=== PATIENT | female | born 1940 | race Caucasian/White ===

== ENCOUNTER → 2016-11-24 | Outpatient (CLI) | payer OTHER ==
[~2016-11-24] MED LIST: ACETAMINOPHEN325 M1 PO; ADULT LOW DOSE81 MG OR; ADULT LOW DOSE81 MG PO; ADVAIR HFA 1112 UNIT INH; ALPRAZOLAM; ALPRAZOLAM 0.0.25 M1 PO; AMBEREN; ASPIRIN325 PO; ATORVASTATIN CA20 MG PO; B12INJ IM; COLACE100 MG PO; COMPAZINE5 M1 PO; COMPAZINE5 MG PO; COUMADIN 2 MG TA2 M1; COUMADIN 5 MG TA5 M1 PO; COZAAR 50 MG TA50 M2 PO; DESYREL50 MG PO; FERROUS SULFAT325 M1 PO; FIBER TABS625 MG PO; FISH OIL300 MG PO; FUROSEMIDE 40 M40 M1 PO; HYDROCODONE-ACE10 ML PO; HYDROCODONE-ACE15 ML PO; HYDROCODONE-AP1 EAC6 PO; IMDUR 30 MG TAB30 M1 PO; IRON325 OR; ISOSORBIDE DINI30 MG PO; LIPITOR20 MG PO; LIPITOR40 MG OR; LIPITOR80 MG PO; LOMOTIL TABLET1 EACH; LORTAB 10 MG-3473 ML PO; LUTEIN-ZEAXANT1 EACH PO; LUTEIN20 M1 PO; MELOXICAM7.5 MG PO; METROGEL TOP; METROGEL-VAGINA70 GM VG; METRONIDAZOLE60 GM; MULTIVITAMINS PO; NEURONTIN 300M300 M2 PO; NEURONTIN100 MG PO; NEURONTIN300 MG PO; NITROGLYCERIN0.4 MG SUBLING; NITROQUICK0.4 MG SUBLING; NORCO 5-325 TA1 EACH PO; OMEGA-31000 M1 PO; OMEGA-31000 MG PO; OMEPRAZOLE20 M2; OMEPRAZOLE20 M2 OR; OMEPRAZOLE20 M2 PO; ORACEA40 MG OR; OXYCODON-ACETA1 EAC1 PO; OXYCODONE-ACET1 EACH PO; PERCOCET 5-3251 EACH PO; PHENADOZ25 MG RECTAL; PREDNISONE 10 M10 M1 PO; PREDNISONE 2.52.5 M1 PO; PREDNISONE PO; PRILOSEC20 MG PO; PROCHLORPERAZINE5 M1 PO; PULMICORT FLE180 MCG INH; Q10; ROXICODONE5 M1 PO; ROXICODONE5 MG PO; SENNA PO; SERTRALINE HCL100 MG PO; SYSTANE 0.3-0.1 EACH OP; SYSTANE 0.3-0.1 EACH OPHTHALMIC; TOPROL XL25 MG PO; TRAZODONE HCL50 MG PO; VENTOLIN HFA INH8 GM INH; VITAMIN B COMP1 EACH IM; VITAMIN D-32000 UNIT PO; VITAMIN D1000 UNI1 PO; VITAMIN D2000 UNI1 PO; VITAMIN D32000 UNI1 PO; VITAMIN D400 UNI1 PO; WELLBUTRIN SR150 MG PO; WELLBUTRIN XL150 MG PO; XANAX 0.25 MG0.25 MG PO; ZOFRAN ODT4 MG PO; ZOLOFT OR; [UNRECOGNIZED DRUG - OTHER]; [UNRECOGNIZED DRUG - OTHER] PO
== END ==
LOC: RAD 10:01
DX: J45.909 Unspecified asthma, uncomplicated (principal)

== ENCOUNTER → 2017-02-19 | Outpatient (CLI) | payer OTHER | LOC: ULTRA 13:55 | DX: N39.0 Urinary tract infection, site not specified (principal) ==

== ENCOUNTER → 2017-07-05 | Outpatient (CLI) | payer OTHER | LOC: RAD 11:57 | DX: J98.11 Atelectasis (principal); R06.00 Dyspnea, unspecified ==

== ENCOUNTER → 2017-10-11 | Outpatient (CLI) | payer OTHER | LOC: CAT 06:53 → LABMALL 06:53 | PROVIDERS: Internal Medicine Pulmonary Disease | DX: K44.9 Diaphragmatic hernia without obstruction or gangrene (principal); R06.00 Dyspnea, unspecified ==

== ENCOUNTER → 2018-04-21 | Outpatient (CLI) | payer OTHER ==
[2018-04-21 11:10] LABS: FOLIC ACID 38.2 ng/mL (8.6-58.9)
== END ==
LOC: RAD 08:53
PROVIDERS: Internal Medicine
DX: K44.9 Diaphragmatic hernia without obstruction or gangrene (principal); Z98.84 Bariatric surgery status

== ENCOUNTER → 2018-04-29 | Outpatient (CLI) | payer OTHER | LOC: MRI 06:26 | DX: R27.0 Ataxia, unspecified (principal); R41.3 Other amnesia; R32 Unspecified urinary incontinence ==

== ENCOUNTER → 2018-05-16 | Outpatient (CLI) | payer OTHER ==
[2018-05-16 09:35] LABS: CALCIUM 8.8 mg/dL (8.5-10.1); CREATININE 0.9 mg/dL (0.6-1.0); POTASSIUM 4.2 mmol/L (3.5-5.1)
== END ==
LOC: LABMALL 08:53 → CAT 14:37
PROVIDERS: Internal Medicine
DX: G45.0 Vertebro-basilar artery syndrome (principal); M47.892 Other spondylosis, cervical region; E04.1 Nontoxic single thyroid nodule

== ENCOUNTER → 2018-06-06 | Outpatient (CLI) | payer OTHER | LOC: CAT 09:24 | DX: J45.40 Moderate persistent asthma, uncomplicated (principal); J98.4 Other disorders of lung ==

== ENCOUNTER → 2018-09-13 | Outpatient (CLI) | payer OTHER | LOC: ULTRA 09-05 14:17 | DX: E04.2 Nontoxic multinodular goiter (principal); R13.10 Dysphagia, unspecified ==

== ENCOUNTER 2019-01-17 13:17 | Inpatient (IN) | payer OTHER ==
[~2019-01-17] VITALS: Ht 157.5 cm; Wt 76.4 kg
[2019-01-17] VITALS (7 sets, daily range): BP systolic 123–148; BP diastolic 43–82
[2019-01-17 14:09] LABS: ABSOLUTE NEUTROPHILS 6.2 thou/uL (1.4-8.2); BASOPHILS 0.6 % (0.0-2.0); EOSINOPHILS 0.1 % (0.0-3.0); HEMOGLOBIN 10.7 gm/dL (12.0-15.0); LYMPHOCYTES 8.9 % (24.0-44.0); MCH 30.9 pg (26.0-34.0); MCHC 33.5 g/dL (28.0-37.0); MCV 92.1 fL (80.0-100.0); MONOCYTES 3.1 % (1.0-8.0); PLATELET COUNT 120 thou/uL (150-400); POLYS 87.3 % (36.0-66.0); RBC 3.47 mil/uL (4.20-5.00); RDW 14.9 % (10.5-14.5); WBC 7.1 thou/uL (4.0-11.0)
[2019-01-17 14:23] LABS: ANION GAP 10 mmol/L (7-16); BUN 14 mg/dL (7-18); CALCIUM 8.6 mg/dL (8.5-10.1); CHLORIDE 106 mmol/L (98-107); CO2 25 mmol/L (21-32); CREATININE 1.1 mg/dL (0.6-1.0); GLUCOSE 155 mg/dL (74-106); POTASSIUM 3.5 mmol/L (3.5-5.1); SODIUM 141 mmol/L (136-145)
[2019-01-17 14:26] LABS: ALBUMIN 3.1 g/dL (3.4-5.0); LIPASE 26 U/L (73-393); MAGNESIUM 1.8 mg/dL (1.8-2.4); SGOT 22 U/L (15-37); SGPT 23 U/L (30-65); TOTAL BILIRUBIN 0.4 mg/dL (<0.1-1.0); TOTAL PROTEIN 6.3 g/dL (6.4-8.2); TROPONIN-I <0.06 ng/mL (<0.06)
[2019-01-17] MEDS ORDERED: NORVASC2.5 MG PO (15:30)
[2019-01-17] MEDS ORDERED: DYMISTA NASAL S23 GM NASAL (15:31)
[2019-01-17] MEDS ORDERED: WELLBUTRIN SR150 MG PO (15:32)
[2019-01-17] MEDS ORDERED: COLESTIPOL HCL1 G1 PO (15:33)
[2019-01-17] MEDS ORDERED: SYSTANE 0.3-0.1 EACH OPHTHALMIC (15:35)
[2019-01-17] MEDS ORDERED: CRESTOR20 MG PO (15:36)
[2019-01-17] MEDS ORDERED: CHILDREN'S ASPI81 MG PO (15:38)
[2019-01-17] MEDS ORDERED: ZOLOFT50 MG PO (15:38)
[2019-01-17] MEDS ORDERED: BREO ELLIPTA 21 EACH INH (15:41)
[2019-01-17] MEDS ORDERED: SPIRIVA INH (15:44)
--- NOTE | 2019-01-17 16:59 | EKG ---
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1940 Requested By: Cecilia Wang Order Number: [id number] MD: Renard Davila Measurements Intervals [place] Rate: 81 P: 42 [place]: 140 QRS: 33 QRSD: 102 T: 6 QT: 389 QTc: 452 Interpretive Statements Sinus rhythm Probable left atrial enlargement Compared to ECG 12/08/2014 14:02:05 No significant changes Electronically Signed On 01-17-2019 16:59:40 R D [employer] by Renard Davila [email or web address] ��������������������������������������������� <ELECTRONICALLY SIGNED> ���������������������������������������� By: Renard Davila MD ��������������������������������������������� 01/17/19 1659 1404 140 Renard Davila MD /KALEE
[2019-01-17 23:00] LABS: BE(vivo) 0.5 mmol/L (-2 to +3); HCO3 23.6 mmol/L (22.0-26.0); PCO2 32.7 mmHg (35.0-45.0); pH 7.477 (7.360-7.450); sO2 97.2 % (92.0-98.0)
[2019-01-18] VITALS: BP 123/46
--- NOTE | 2019-01-18 00:13 | NUR ---
Pt resting comfortably in bed with stable VS and no c/o pain. Report called to next RN and pt awaiting transfer to CCU.
[2019-01-18 00:47] VITALS: BP 137/54
[2019-01-18 04:55] VITALS: BP 123/57
--- NOTE | 2019-01-18 08:16 | NUR ---
PT. TRANSFER FROM ICU AROUND MIDNIGHT; AOX4; NO C/O; C-PAP ON DURING THE NIGHT; NPO THROUGH THE NIGHT; ABLE TO REST DURING THE NIGHT; ASSESSMENT CHARGED; FOLLOWING POC; PASSED ON REPORT.
--- NOTE | 2019-01-18 08:40 | EKG ---
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 : 1940 Requested By: Arnulfo Morley Order Number: [id number] MD: Renard Davila Measurements Intervals [place] Rate: 71 P: 42 MS: 150 QRS: 58 QRSD: 93 T: 25 QT: 424 QTc: 461 Interpretive Statements Sinus rhythm Compared to ECG 01/17/2019 14:04:05 No significant changes Electronically Signed On 01-18-2019 8:40:19 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
--- NOTE | 2019-01-18 09:26 | TEE ---
[facility] [place] [address] TRANSESOPHAGEAL ECHOCARDIOGRAM Name: VASILE DALE Room #: 219-P [facility] IN .R.#: [id number] ������������� Admission: 01/17/19 ������������� Attend Phys: Arnulfo Morley MD Discharge: ��� ������������� ��� Date of : 38 Date of Service: 01/18/19 0926 �� Report #: [id number] �������� ��������������������������������������������[id number] THIS REPORT FOR: //name// APPROVED REPORT Study performed: 01/18/2019 08:20:01 EXAM: Comprehensive 2D, Doppler, and color-flow Echocardiogram Patient Location: CVL Status: routine BSA: 1.79 HR: 80 bpm BP: 123/57 mmHg Rhythm: NSR Other Information Study Quality: Good Indications Mitral and aortic insufficiency. Chest pain. Echo Enhancing Agent Indication: Rule out Shunt Agent(s) / Amount(s) Used: Agitated Saline 6 cc Procedure After obtaining informed consent, patient underwent transesophageal echo in the [employer]. Type of Sedation : Conscious Sedation Sedation was achieved intravenously with: Versed (2) Fentanyl (100) Transesophageal probe was inserted and advanced into esophagus without difficulty by Brock Lemon MD. The PAT was performed without complications. Throughout the procedure, the blood pressure, pulse oximetry, cardiac rhythm, and rate were monitored. The patient tolerated the procedure without adverse effects. Recovery from conscious sedation was uneventful and vital signs were stable. Left Ventricle The left ventricle is normal size. There is normal LV segmental wall motion. There is normal left ventricular wall thickness. Left ventricular systolic function is normal. LVEF is 55-60%. [facility] [address] [place] [address] TRANSESOPHAGEAL ECHOCARDIOGRAM Name: VASILE DALE [facility] Room #: 219-P ADM IN M.R.#: [id number] ������������� Admission: 01/17/19 ������������� Attend Phys: Arnulfo Morley MD Discharge: ��� ������������� ��� Date of : 38 Date of Service: 01/18/19 0926 �� Report #: [id number] �������� ��������������������������������������������[id number] Right Ventricle The right ventricle is normal size. The right ventricular systolic function is normal. Atria Left atrium is dilated. No thrombus is visualized in the left atrium or appendage. No shunting noted by contrast bubble injection. The right atrium size is normal. Aortic Valve Aortic valve is trileaflet, mildly sclerotic Moderate to moderately severe aortic regurgitation There is no aortic valvular stenosis. Mitral Valve The mitral valve is normal in structure. Severe mitral regurgitation. Tricuspid Valve The tricuspid valve is normal in structure. Mild tricuspid regurgitation. Pulmonic Valve The pulmonary valve is normal in structure. There is no pulmonic valvular regurgitation. Great Vessels The aortic root is normal in size. IVC is normal in size and collapses >50% with inspiration. Pericardium There is no pericardial effusion. Critical Notification Critical Value: Yes Physician Notified Date: 01/18/2019 <Conclusion> Left ventricular systolic function is normal. There is normal LV segmental wall motion. LVEF is 55-60%. Left atrium is dilated. No thrombus is visualized in the left atrium or appendage. No shunting noted by contrast bubble injection. [facility] [address] [place] [address] TRANSESOPHAGEAL ECHOCARDIOGRAM Name: VASILE DALE [facility] Room #: 219-P ADM IN M.R.#: [id number] ������������� Admission: 01/17/19 ������������� Attend Phys: Arnulfo Morley MD Discharge: ��� ������������� ��� Date of : 38 Date of Service: 01/18/19925 �� Report #: [id number] �������� ��������������������������������������������[id number] Aortic valve is trileaflet, mildly sclerotic, no stenosis. Moderate to moderately severe aortic regurgitation The mitral valve is normal in structure. Severe mitral regurgitation. There is no pericardial effusion. ��������������������������������������������� <ELECTRONICALLY SIGNED> ���������������������������������������� By: Brock Lemon MD, FACC ��������������������������������������������� 01/18/19925 5 5 Brock Lemon MD, FACC /INF
[2019-01-18 11:04] VITALS: BP 123/47
--- NOTE | 2019-01-18 11:28 | NUR ---
0940-CALLED REPORT TO [facility] ON CCU,PT A/O X4 WITH NO COMPLAINTS. TRANSPORTED PT BACK TO CCU, VSS, PT BACK ON RA.
--- NOTE | 2019-01-18 11:56 | H ---
[facility] [place] [address] HISTORY AND PHYSICAL Name: VASILE FELICIANO Room #: 219-P ADM IN M.R.#: [id number] Admission: 01/17/19 ������������������ Attend Phys: Arnulfo Morley MD Discharge: ������������������ Date of : 39 Report #: [id number] THIS REPORT FOR: //name// CC: BRADLY Wilder MD DATE OF SERVICE: 01/17/2019 CHIEF COMPLAINT: Chest pain. HISTORY OF PRESENT ILLNESS: The patient is a 78-year-old female who last Wednesday was shopping at [employer] when she developed chest pain and was taken to the Emergency Room at [facility] via ambulance. She underwent an extensive cardiac workup, which was negative for coronary artery ischemia, but revealed very significant and new severe mitral valve regurgitation. The pulmonary artery pressure on their study suggested that it was elevated at 55 mmHg. The patient was managed aggressively there including some diuretic therapy, I believe and her pain resolved with nitrates. The workup was otherwise benign and the cardiology team did recommend that she see a specialist about having a MitraClip mitral valve repair as soon as possible. I saw the patient in my office today for routine followup after her hospital stay. In my waiting room or shortly prior to entering it, she developed this chest pain again and took nitroglycerin and it removed it after about 10 minutes of resting calmly. On exam, I noticed no other changes other than that she was quite pale and on exam, her cardiac exam sounded regular and strong, a systolic murmur could be heard in the left lateral chest wall, but the exam was otherwise fairly benign. She does have edema in her lower extremities. I did call and speak with her scientific research manager at [facility], Dr. Bradly Harman. After reviewing the case briefly by phone, he recommended further admission and workup of her suddenly worse mitral valve condition. The patient did provide us with extensive medical records from her stay at [facility] including a pharmacologic stress test and echocardiogram and lab tests that she had while there. The patient also reports to me that she has been noticing episodes of wheezing in her chest lately. She has chronic shortness of breath due to asthma and reactive airway problems, but otherwise, is benign. No other significant problems on extensive review today. PAST MEDICAL HISTORY: Includes Jayna fundoplication in 2008 and revision of it in 2013 as well as a gastric sleeve. There is hypertension, bilateral knee replacements, polymyalgia rheumatica and prior chronic steroid therapy, anxiety and major depression in the past, obstructive sleep apnea, right hip replacement, cataract surgeries bilaterally. [facility] [address] [place] [address] HISTORY AND PHYSICAL Name: VASILE FELICIANO Room #: 219-P [facility] IN M.R.#: [id number] Admission: 01/17/19 ������������������ Attend Phys: Arnulfo Morley MD Discharge: ������������������ Date of : 39 Report #: [id number] MEDICATION ALLERGIES: INCLUDE CODEINE, LANSOPRAZOLE, CIPRO, CALCIUM CHANNEL CEDRICK, DILTIAZEM, VALSARTAN AND PAPER TAPE AND LATEX. MEDICATIONS: Include albuterol rescue inhaler, sublingual nitroglycerin 0.4 mg with usual instructions, hydrocodone for chronic backache p.r.n., alprazolam 0.25 mg 3 times daily as needed for anxiety, amlodipine 2.5 mg by mouth daily, Dymista nasal spray 1 puff each nostril b.i.d., bupropion hydrochloride 150 mg twice daily, colestipol 1 g by mouth twice daily for choleretic diarrhea, Systane eyedrops p.r.n. dry eyes, Crestor 20 mg by mouth daily, sertraline 150 mg by mouth daily, aspirin 81 mg by mouth daily, fluticasone/vilanterol (Breo Ellipta)) 200/25 one puff by mouth daily, Spiriva 1 capsule per inhaler by mouth daily, omeprazole 20 mg by mouth twice daily, vitamin D3 at 2000 units by mouth daily, gabapentin 300 mg by mouth nightly and trazodone 50 mg by mouth nightly p.r.n. insomnia. SOCIAL HISTORY: The patient is to Yung Feliciano and has grown children and has grandchildren. She has no history of drug or alcohol abuse or any significant vices of which I am aware. She does not smoke and has never been a smoker for any length of time. FAMILY HISTORY: She has a brother with bipolar disease. Her mother in her mid 90s of myocardial infarction, her first one. REVIEW OF SYSTEMS: See history of present illness, despite an otherwise extensive review, the patient revealed no other significant new findings. PHYSICAL EXAMINATION: VITAL SIGNS: In the Emergency Room showed respiratory rate of 18 with a pulse oximetry of 95% on room air. Her pulse was 75, temperature of 37.2 degrees centigrade, and blood pressure of 137/50 and these numbers were comparable to once I obtained in the office prior to sending her to the Emergency Room. Her self-reported weight today was 173 pounds. GENERAL: The patient is an older female who is in mild distress at the time of my original exam and was out of distress by the time I visited her with second time when I saw her in the Emergency Room at [facility]. HEENT: The extraocular muscles are intact. Oropharynx is moist and pink and no lesions, no exudates. Sinuses are nontender. She has had prior nasal surgery and has somewhat narrowed nasal inlets. NECK: Supple. There is no adenopathy or thyromegaly or mass or significant JVD or bruit. LUNGS: Fairly clear bilaterally with faint crackles in the bases. CARDIAC: Reveals a regular rhythm with no gallop, but a soft left anterior chest wall. Systolic ejection murmur is heard. ABDOMEN: Soft. Bowel sounds are present throughout. No visceromegaly or masses. EXTREMITIES: There is bilateral 2+ to 3+/4 pitting edema in bilateral lower [facility] [address] [place] [address] HISTORY AND PHYSICAL Name: VASILE FELICIANO Room #: 219-P [facility] IN M.R.#: [id number] Admission: 01/17/19 ������������������ Attend Phys: Arnulfo Morley MD Discharge: ������������������ Date of : 39 Report #: [id number] extremities up to about the mid devries. No Homans signs on either side. Prior knee surgeries noted. Peripheral pulses are weak, but palpable bilaterally in the lower extremities and strong in the upper extremities. NEUROLOGIC: The mental status is completely normal. She is fully alert and oriented x 3. No hallucinations or delusions and her affect is full. No focal deficits of cranial nerves 2-12. No Babinski's sign or Romberg's sign. No focal deficits of motor function noted on gross exam. Stocking distribution, mild sensory loss chronically. EKG, normal sinus rhythm with left atrial enlargement, rate was approximately 80, no ischemic changes were noted. Chest x-ray showed no acute infiltrates. LABORATORY DATA: CMP and CBC were reviewed and found to be fairly normal. Potassium was on the low side of normal 3.5, magnesium level was on the low normal side of 1.8, glucose was elevated at 155, but nonfasting. Renal function was mildly diminished with a GFR of 48. Troponin was less than 0.06. NT-proBNP was slightly elevated at 449 with the upper limits of normal at 300. On the CBC, the hemoglobin was slightly decreased at 10.7, but consistent with her baseline and her platelet count was slightly low at 120,000 and should be repeated in the near future. ASSESSMENT AND PLAN: 1. Recurrent severe chest pain -- the patient did relate radiation to the jaw, some mild shortness of breath and sweating with this chest pain. The pain is not reproducible with exertion, however, and is not typical for coronary artery disease. Per my discussion with Dr. Harman twice earlier today, he does not feel that the chest pain is related to her mitral valve disease, which was news to him also. Nonetheless, I would like to make sure the patient is not having pulmonary emboli or any GI problems related to her prior esophageal and gastric surgeries. In the remote past, we did treat her for esophageal spasm problems with long-acting nitrates. I suspect we are headed in that direction again if her workup fails to reveal any other significant issues. I will get an upper GI series while she is here, but we will wait until after her transesophageal echocardiogram, which is tentatively scheduled for tomorrow morning. I will get serial cardiac enzymes to make sure that there was not a myocardial infarction, but her first set is normal and her EKG is normal and the likelihood of her having had a cardiac ischemic event at this time appears fairly unlikely. 2. Recently diagnosed "severe" mitral valve regurgitation with pulmonary artery hypertension -- we will defer to my cardiology colleagues and as regards the results of her transesophageal echocardiogram. Her cardiac rhythm is normal at this time and aggressive anticoagulation is not indicated. 3. Hypertension -- we will continue her home medications and treat accordingly. 4. Asthma and obstructive sleep apnea -- we will continue her home therapies and adjust as clinically indicated. [facility] [address] [place] [address] HISTORY AND PHYSICAL Name: VASILE FELICIANO Room #: 219-P [facility] IN M.R.#: [id number] Admission: 01/17/19 ������������������ Attend Phys: Arnulfo Morley MD Discharge: ������������������ Date of : 38 Report #: [id number] 5. Hyperlipidemia -- continue rosuvastatin therapy. 6. Gastroesophageal reflux disease -- continue current therapy. 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 8. History of multiple esophageal/gastric surgeries in the past -- we will obtain consultation with Dr. Brock Wilder at all regarding the possibility that her surgical revisions may be contributing to this clinical presentation of chest pain. I have ordered an upper GI series to assist in that workup. I will defer on getting a Gastroenterology consultation at this time unless my surgical colleague thinks that it would be useful in delineating upper GI issues in her current setting. ��������������������������������������������� <ELECTRONICALLY SIGNED> ���������������������������������������� By: Arnulfo Morley MD ��������������������������������������������� 01/18/19 1156 [id number] Arnulfo Morley MD /nt
[2019-01-18 15:22] VITALS: BP 133/56
[2019-01-18 19:24] VITALS: BP 131/49
--- NOTE | 2019-01-18 19:38 | NUR ---
ASSESSMENTS DOCUMENTED. PT DENIES ANY PAIN OR DISCOMFORT THROUGH OUT THE DAY. WAS NPO FOR PLANNED PAT. CALLED BY RADIOLOGY ABOUT CHANGING UPPER GI SCAN TO TOMORROW DUE TO RADIOLOGIST NOT WANTING TO COMPLETE THE SAME DAY THE PAT. PLAN FOR EGD/UPPER GI SCAN IN THE AM. PT TO BE NPO AT MIDNIGHT TONIGHT. OTHERWISE NO NEEDS OR CONCERNS AT THIS TIME.
[2019-01-19 03:48] VITALS: BP 121/55
--- NOTE | 2019-01-19 07:25 | NUR ---
ASSUME CARE 1900. PT/VITALS STABLE. DENIES ANY PAIN. UP AD CHLOE. ASSESSMENT CHARTED. PROGRESSING WELL WITH POC. PLAN IS NPO AFTER MIDNIGHT FOR AGD AND UPPER GI SERIES. WILL CONTINUE TO MONITOR AND FOLLOW WITH POC
[2019-01-19 08:00] VITALS: BP 129/52
[2019-01-19] MEDS ORDERED: IMDUR 30 MG TAB30 M1 PO (12:05)
[2019-01-19] MEDS ORDERED: COZAAR 50 MG TA50 M1 PO (12:06)
[2019-01-19] MEDS ORDERED: FLONASE 0.05%50 MCG NASAL (12:07)
[2019-01-19] MEDS ORDERED: DEMADEX 2020 MG/1 TA PO (12:07)
[2019-01-19] MEDS ORDERED: PREDNISONE 20 M20 M1 PO (12:09)
[2019-01-19 13:48] VITALS: BP 129/52
--- NOTE | 2019-01-19 13:52 | NUR ---
ASSESSMENTS DOCUMENTED. PT KEPT NPO FOR EDG AND UPPER GI SERIES. AFTER MULTIPLE PHONE CALLS, DETERMINED PT WILL NOT HAVE EGD AND TO CONTINUE TO UPPER GI SERIES ONLY. DR. HERNANDEZ AWARE AND IN PT ROOM DISCUSSING WITH PT AND SPOUSE. CALLED RESULTS OF STUDY TO DR. HRENANDEZ. TELEPHONE ORDER TO DISCHARGE PT. DR. HERNANDEZ PROVIDED SCRIPTS TO PATIENT FOR NEW MEDICATIONS. DISCHARGE INSTUCTIONS WENT OVER. DENIES ANY QUESTIONS OR CONCERNS. IV TAKEN OUT. TELEMONITOR OFF.
--- NOTE | 2019-01-20 09:31 | D ---
[facility] [place] [address] DISCHARGE SUMMARY Name: VASILE DALE Room #: 219-P [facility] IN M.R.#: [id number] Admission: 01/17/19 ������������������ Attend Phys: Arnulfo Morley MD Discharge: 01/19/19 ������������������ Date of : 39 Report #: [id number] THIS REPORT FOR: //name// CC: BRADLY Wilder MD DATE OF SERVICE: 01/19/2019 HOSPITAL COURSE: The patient is a 78-year-old female who presents with chest pain. The problem was severe at least a 10/10 on presentation and that she had another episode in the week, just prior, which landed her at [facility]. She received a complete cardiac workup there, which was negative except for the diagnosis of severe mitral valve regurgitation. Pulmonary artery pressures that time was about 50 and at the time of discharge from there, she was being referred to a subspecialist for consideration of a mitral clip for her mitral valve problem. On the day of admission here, she presented in my office having chest pain and was sent to [facility] for further evaluation and treatment. In consultation, Dr. Bradly Harman saw and guided her cardiac management. She did have a transesophageal echocardiogram while she was in the hospital. This revealed that in addition to her mitral valve regurgitation, which is significant and classified as moderately severe, she also has significant aortic valve regurgitation as well. Given that her ejection fraction is in the range of 55-60%, the main course of treatment will be afterload reduction with angiotensin receptor luis a and diuretic therapy. The patient was taken off of amlodipine during this hospital stay. We do not feel that the recurrent chest pain is due to a cardiac source. Given her prior history of at least 2 esophageal and gastric surgeries in the past, I did obtain a consult with her surgeon, Dr. Brock Wilder. At the time of this dictation, the upper GI x-ray series, which has been ordered and is pending. It is my impression that either the patient has hernia or she has a volvulus intermittently above. In any case, she is not vomiting and she is having chest soreness, but no pain at this time. Given that this problem has been noted in the past, albeit with much less severity, we feel it is likely that the patient needs to be hospitalized no further and plan to continue any necessary workup on the patient as an outpatient. In addition to the medication changes outlined above, I am also adding Imdur 30 mg by mouth daily in the morning for this patient to see if it will help maintain her with less chest pain in the future. Please note that serial EKGs and troponins as well as 2 recent coronary artery disease workups were negative for any evidence of coronary ischemic disease. If the upper GI series is otherwise benign and ____ discharge the patient to home this afternoon and [address] [address] DISCHARGE SUMMARY Name: VASILE DALE JET Room #: 219-P [facility] IN M.R.#: [id number] Admission: 01/17/19 ������������������ Attend Phys: Arnulfo Morley MD Discharge: 01/19/19 ������������������ Date of : 39 Report #: [id number] continue the workup as an outpatient as needed. If a significant volvulus problem is found, this may require further surgical intervention and could be significant danger to her health if not treated on immediately. DISCHARGE DIAGNOSES: 1. Noncardiac chest pain, recurrent. 2. Multiple esophageal surgeries in the past. 3. Moderately severe mitral valve regurgitation. 4. Moderately severe aortic valve regurgitation. 5. Mild coronary artery disease without evidence of inducible ischemia. 6. Gastroesophageal reflux disease. 7. Hyperlipidemia. 8. Hypothyroidism. 9. History of depression. 10. Leg edema. 11. Osteoporosis. 12. Anxiety. 13. Polymyalgia rheumatica. 14. Seasonal allergic rhinitis. DISCHARGE MEDICATIONS: As follows: 1. Ventolin inhaler q.6 hours p.r.n. shortness of breath or wheezing. 2. Sublingual nitroglycerin 0.4 mg p.r.n. chest pain up to 3 times per episode. 3. Hydrocodone/acetaminophen 5/325 one by mouth every 6 hours as needed for moderate pain. 4. Xanax 0.25 mg by mouth 3 times daily p.r.n. anxiety. 5. Omeprazole 20 mg by mouth twice daily. 6. Vitamin D3 2000 units by mouth daily. 7. Gabapentin 300 mg by mouth and just make sure gabapentin 300 mg by mouth at bedtime. 8. Trazodone 50 mg by mouth at bedtime. 9. Dymista nasal spray 23 grams spray pump 1 puff each nostril twice daily/ 10. Bupropion hydrochloride 150 mg sustained release formulation by mouth twice daily. 11. Colestipol 1 gram tablets one tablet by mouth twice daily. 12. Systane eye drops 1 drop each eye daily as needed for dry eyes. 13. Crestor 20 mg by mouth daily at bedtime for cholesterol. 14. Sertraline 100 mg by mouth daily in the morning. 15. Aspirin 81 mg by mouth daily in the morning. 16. Breo Ellipta 200/25 one puff daily. 17. Tiotropium bromide 1 capsule per HandiHaler daily. 18. Imdur 30 mg by mouth every morning. 19. Losartan 50 mg by mouth every morning. 20. Torsemide 20 mg by mouth every morning. 21. Fluticasone nasal spray is canceled as she will be using the Dymista. [facility] [address] [place] [address] DISCHARGE SUMMARY Name: VASILE DALE Room #: 219-P [facility] IN M.R.#: [id number] Admission: 01/17/19 ������������������ Attend Phys: Arnulfo Morley MD Discharge: 01/19/19 ������������������ Date of : 39 Report #: [id number] 22. Prednisone and that actually should read 18 mg by mouth every morning for treatment of polymyalgia rheumatica. ��������������������������������������������� <ELECTRONICALLY SIGNED> ���������������������������������������� By: Arnuflo Morley MD ��������������������������������������������� 01/20/19 0931 1225 [id number] Arnulfo Morley MD /nt
--- NOTE | 2019-01-25 09:01 | HC ---
[facility] [place] [address] CONSULTATION Name: VASILE DALE Room #: 219-P [facility] IN M.R.#: [id number] Admission: 01/17/19 ������������������ Attend Phys: Arnulfo Morley MD Discharge: 01/19/19 ������������������ Date of : 39 Report #: [id number] THIS REPORT FOR: //name// CC: Arnulfo Morley DATE OF SERVICE: 01/17/2019 HISTORY OF PRESENT ILLNESS: The patient is a 78-year-old female who is known to myself. Followed by Dr. Arnulfo Morley. There had been a history of some chest pain with some typical and atypical features. She has a history of coronary artery disease. Last catheterization was 2010 with a 40% LAD. She has had a stress echo or nuclear test in my office in August of last year and then just had a nuclear pharmacologic test done at [place] [facility] that they mention in the discharge summary as being normal. They also talk about some moderately severe mitral regurgitation with some mitral annular calcification. She had mild mitral regurgitation, mild tricuspid regurgitation on a stress echo in 08/2017 in my office. She has some recurrent chest pain, which had been episodic on and off anywhere from 10 to 20 minutes, over the last few months. She has a very complex GI history with at least a partial gastrectomy and surgery for reflux. So, this is not necessarily a new finding. Troponins were negative at [place] [facility] and are negative here today. Instructed to come to the ER by Dr. Morley. She is pain free currently and the EKG is unremarkable. Her enzymes are negative. I do not perceive this to be epicardial coronary disease. She does not appear to be in heart failure. She had some question of slurred speech and was seen by Neurology and CT of the head that was unremarkable at [facility]. This admission had just occurred in the last few days and that apparently has resolved and she is denying any current complaints tonight. She is on Proventil inhaler, Wellbutrin, amlodipine 2.5, Colestid, gabapentin, omeprazole, metronidazole gel p.r.n., eyedrops, Crestor 20, trazodone 50 at bedtime, Zoloft 100 and cholecalciferol. PAST MEDICAL HISTORY: Positive for the coronary artery disease which was mild; hypertension; hypercholesterolemia; PMR; positive MADINA; long history of reflux with partial gastrectomy and reflux operation per Dr. Wilder. A total hip revision. I believe that stomach surgery in the past had been a Jayna fundoplication. FAMILY HISTORY: Strongly positive for premature coronary artery disease, mother and father and a cousin. SOCIAL HISTORY: She is accompanied by her daughter. She is a nonsmoker, minimal alcohol use. She is retired. One glass of wine. Does do green tea on a daily basis. She does walk some in a pool in the past. LABORATORY DATA: Potassium 3.5, sodium 141, creatinine 1.1, glucose 150. Normal liver function test. Troponin negative. H and H are 10.7 and 32, white [facility] [address] [place] [address] CONSULTATION Name: VASILE DALE Room #: 219-P [facility] IN M.R.#: [id number] Admission: 01/17/19 ������������������ Attend Phys: Arnulfo Morley MD Discharge: 01/19/19 ������������������ Date of : 39 Report #: [id number] count 7.1, platelets 120. Lipids last summer in my office were favorable with an HDL of 80 and LDL 63, total cholesterol 163, triglycerides 101. PHYSICAL EXAMINATION: GENERAL: She is no distress currently. She is eating dinner. She is in an ICU overflow bed. VITAL SIGNS: Blood pressure is 130/60, pulse is 80. HEENT: Eyes reveal xanthelasmas. Pharynx is clear. NECK: Shows preserved upstrokes without JVD or bruits. LUNGS: Clear. CARDIOVASCULAR: Regular rate and rhythm, S1, S2. There is a faint holosystolic murmur at the apex. ABDOMEN: Soft. There is some mild diffuse tenderness in the midepigastric area. Bowel sounds are noted. EXTREMITIES: Reveal trace of edema. Distal pulses diminished, but intact. NEUROLOGIC: Nonfocal. SKIN: Warm and dry without xanthoma or ulcer. MUSCULOSKELETAL: Generalized arthritic changes. ASSESSMENT: 1. Chest pain, I suspect GI etiology with long history of fundoplication and recurrent gastric esophageal surgery. 2. Coronary artery disease. It has been mild in the past. No evidence with negative nuclear stress test in August and then recently this week, negative for ischemia. 3. Hypertension. 4. Hypercholesterolemia. 5. Degenerative joint disease. 6. Mitral insufficiency of some unclear degree. RECOMMENDATIONS AND PLAN: She does not appear to be in any overt heart failure. We will proceed with PAT for better visualization of this valve, I certainly have some conflicting reports. I was able to review the stress echo from 08/2017. There was some mild thickening of the mitral valve and mitral annular calcification, but mild MR best at that setting. There was moderate aortic insufficiency at that setting that was also reported. LV function was preserved. I believe Dr. Morley is also having surgery and GI evaluate for this with this complex GI history. We will follow along with you. Thank you for allowing us to assist in the care of this patient. ��������������������������������������������� <ELECTRONICALLY SIGNED> ���������������������������������������� By: Bradly Harman MD, [facility] ��������������������������������������������� 01/25/19 0901 [id number] Bradly Harman MD, FACC /nt
== END 2019-01-19 14:34 | disposition home or self-care (01) | DRG 392 ==
LOC: ER 13:17 → EROBS 15:19 → 2N 15:19 → ICU 18:24 → 2N 01-18 00:46 → ENTRNSPT 01-19 14:15 → EDTRNSPTSTS 01-19 14:27 → 2N 01-19 14:34
PROVIDERS: Nurse Practitioner Family; ADMIT Internal Medicine
PROC: B24BZZ4 Ultrasonography of Heart with Aorta, Transesophageal (ICD-10-PCS; principal; 2019-01-18)
DX: K22.4 Dyskinesia of esophagus (principal); K21.9 Gastro-esophageal reflux disease without esophagitis; Z96.653 Presence of artificial knee joint, bilateral; F32.9 Major depressive disorder, single episode, unspecified; F41.9 Anxiety disorder, unspecified; Z96.641 Presence of right artificial hip joint; J45.909 Unspecified asthma, uncomplicated; I10 Essential (primary) hypertension; E78.00 Pure hypercholesterolemia, unspecified; I25.10 Atherosclerotic heart disease of native coronary artery without angina pectoris; I34.0 Nonrheumatic mitral (valve) insufficiency; E03.9 Hypothyroidism, unspecified; M81.0 Age-related osteoporosis without current pathological fracture; M35.3 Polymyalgia rheumatica; G47.33 Obstructive sleep apnea (adult) (pediatric); M19.90 Unspecified osteoarthritis, unspecified site; E78.5 Hyperlipidemia, unspecified; I35.1 Nonrheumatic aortic (valve) insufficiency; I27.20 Pulmonary hypertension, unspecified; D64.9 Anemia, unspecified; Z98.42 Cataract extraction status, left eye; Z98.41 Cataract extraction status, right eye; Z98.84 Bariatric surgery status; Z88.8 Allergy status to other drugs, medicaments and biological substances; Z88.6 Allergy status to analgesic agent; Z88.1 Allergy status to other antibiotic agents; Z91.040 Latex allergy status; Z82.49 Family history of ischemic heart disease and other diseases of the circulatory system; Z81.8 Family history of other mental and behavioral disorders; Z79.82 Long term (current) use of aspirin; Z79.899 Other long term (current) drug therapy
CPT/HCPCS: 10081; 10203

== ENCOUNTER → 2019-06-30 | Outpatient (CLI) | payer OTHER ==
[~2019-06-30] MED LIST changes: +BREO ELLIPTA 21 EACH INH; +CHILDREN'S ASPI81 MG PO; +COLESTIPOL HCL1 G1 PO; +COZAAR 50 MG TA50 M1 PO; +CRESTOR20 MG PO; +DEMADEX 2020 MG/1 TA PO; +DYMISTA NASAL S23 GM NASAL; +FLONASE 0.05%50 MCG NASAL; +NORVASC2.5 MG PO; +PREDNISONE 20 M20 M1 PO; +SPIRIVA INH; +ZOLOFT50 MG PO
[2019-06-30 11:05] VITALS: BP 124/62
[2019-06-30 12:03] VITALS: BP 130/64
--- NOTE | 2019-06-30 13:12 | NUR ---
IN FOR 2ND AND LAST VENOFER INFUSION. PATIENT STATED SHE FEELS A LITTLE STRONGER THIS WEEK, AND NOTICED NO SIDE EFFECTS FROM 1ST DOSE LAST WEEK. IV STARTED AND INFUSED VENOFER OVER 30 MINUTES AND TOLERATED WELL. POST VITAL SIGNS GOOD. OBSERVED FOR 15 MINUTES AND THEN DISMISSED IN STABLE CONDITION.
== END ==
LOC: OPONC 01:45
DX: D50.9 Iron deficiency anemia, unspecified (principal)
CPT/HCPCS: 95000

== ENCOUNTER → 2019-09-01 | Outpatient (CLI) | payer OTHER | LOC: MRI 10:00 | DX: M85.89 Other specified disorders of bone density and structure, multiple sites (principal); M54.9 Dorsalgia, unspecified; Z78.0 Asymptomatic menopausal state ==

== ENCOUNTER → 2019-10-25 | Outpatient (CLI) | payer OTHER | LOC: RAD 09:42 | DX: R91.8 Other nonspecific abnormal finding of lung field (principal); J98.11 Atelectasis ==

== ENCOUNTER 2019-11-30 12:50 | Inpatient (IN) | payer OTHER ==
[~2019-11-30] VITALS: Ht 154.9 cm; Wt 81.2 kg
--- NOTE | ~2019-11-30 | D ---
[facility] [place] [address] DISCHARGE SUMMARY Name: VASILE DALE Room #: 434-P [facility] IN M.R.#: [id number] Admission: 11/30/19 Attend Phys: Arnulfo Morley MD Discharge: 12/02/19 Date of : 39 Report #: [id number] THIS REPORT FOR: //name// CC: Arnulfo Morley DATE OF SERVICE: 12/02/2019 HOSPITAL COURSE: The patient was admitted directly after visiting my office and having symptomatic hypoxia with persistent cough and a fever of 101.4 degrees in the middle of flu season. Flu swab was done at the hospital and was negative. The patient was dehydrated and quite wheezy, so she was treated aggressively with aggressive nebulizer treatments and pulmonary toilet as well as steroids, oral antibiotics and Tamiflu and intravenous fluids for the dehydration. She responded to all the treatments rather quickly. After 48 hours, she had not had any further episodes of fever and coupled with the negative flu swabs I felt unlikely that she would have influenza. At time of discharge, I am discontinuing the Tamiflu and will continue her other home medications as before and add following to her short-term regimen. First, we will put her on minocycline 100 mg twice a day for an additional 7 days to treat antibacterial respiratory infection apparently. The patient had several liters of intravenous fluids, tolerated this well and actually felt much better afterwards. She did some occupational physical therapy while she was here and began to feel more stable in her feet, although it is recommended during this discharge for the first time the patient continue using a roller walker after she goes home. The patient prefers a rollator and I have given her an order for that while she was in the hospital. Other discharge diagnoses after atypical pneumonia include asthma, hyperlipidemia, hypertension, mitral valve regurgitation, chronic recurrent depression, anxiety, gastroesophageal reflux disease and the rest is as noted in her chart. She is to see me in followup 1 week after discharge. She will call the office for an appointment on Wednesday. Her home medications will continue as before with the addition of the minocycline and after she finishes that, she will go on a 2-week course of Nystatin swish and swallow to take care of apparent rash that she is developing from the antibiotics and steroids that she is on. She will go back to her baseline dose of prednisone, which she was taking at home prior to admission this time. She was at 40 mg twice a day while hospitalized. [address] [address] DISCHARGE SUMMARY Name: VASILE DALE Room #: 434-P [facility] IN M.R.#: [id number] Admission: 11/30/19 Attend Phys: Arnulfo Morley MD Discharge: 12/02/19 Date of : 39 Report #: [id number] Thank you very much. By: [id number] Arnulfo Molrey MD /nt
[2019-11-30 13:39] LABS: BE(vivo) 1.2 mmol/L (-2 to +3); HCO3 25.3 mmol/L (22.0-26.0); PCO2 38.1 mmHg (35.0-45.0); PO2 61.5 mmHg (80.0-100.0); sO2 92.5 % (92.0-98.0)
[2019-11-30 14:33] LABS: ABSOLUTE NEUTROPHILS 5.6 thou/uL (1.4-8.2); BASOPHILS 0.5 % (0.0-2.0); EOSINOPHILS 0.3 % (0.0-3.0); HEMATOCRIT 33.3 % (37.0-47.0); HEMOGLOBIN 10.7 gm/dL (12.0-15.0); LYMPHOCYTES 4.9 % (24.0-44.0); MCH 28.8 pg (26.0-34.0); MCV 90.1 fL (80.0-100.0); MONOCYTES 9.1 % (1.0-8.0); PLATELET COUNT 133 thou/uL (150-400); POLYS 85.2 % (36.0-66.0); RDW 15.9 % (10.5-14.5); WBC 6.5 thou/uL (4.0-11.0)
[2019-11-30 14:47] LABS: CALCIUM 8.4 mg/dL (8.5-10.1); CREATININE 1.4 mg/dL (0.6-1.0); POTASSIUM 3.7 mmol/L (3.5-5.1)
[2019-11-30 14:53] LABS: ALBUMIN 3.2 g/dL (3.4-5.0); DIRECT BILIRUBIN 0.1 mg/dL (<0.1-0.2); TOTAL BILIRUBIN 0.4 mg/dL (<0.1-1.0); TOTAL PROTEIN 6.6 g/dL (6.4-8.2)
[2019-11-30 17:21] VITALS: BP 116/40
[2019-11-30 19:25] VITALS: BP 115/41
--- NOTE | 2019-11-30 19:34 | NUR ---
Pt direct admission from Dr. Morley office. States she has a headahe and feels like she has the flu. Flu swab and MRSA swab sent to lab. New orders acknowledged. New IV started. IVF infusing. Labs and chest X-ray faced per 's order. Med rec completed. Admission completed. Report given to noc RN.
[2019-11-30 22:45] LABS: URINE BILIRUBIN NEGATIVE (Negative); URINE BLOOD NEGATIVE (Negative); URINE CLARITY CLEAR; URINE COLOR YELLOW; URINE GLUCOSE-RANDOM* NEGATIVE (Negative); URINE KETONES NEGATIVE (Negative); URINE LEUKOCYTES-REFLEX NEGATIVE (Negative); URINE NITRITE-REFLEX NEGATIVE (Negative); URINE PROTEIN (DIPSTICK) NEGATIVE (Negative); URINE UROBILINOGEN 0.2 E.U./dl (0.2-1.0)
--- NOTE | 2019-12-01 00:34 | NUR ---
ASSUMED CARE OF PT @1900 PT ASSESSED AT START OF SHIFT A&OX4 IV INTACT AND FLUIDS INFUSING. SCHEDULED TYLENOL GIVEN FOR GENERALIZIED PAIN. PT GETS BX AND WEARS CPAP. ISOLATION MAINTAINED AND UA SAMPLE SENT TO LAB. FALL PREC IN PLACE AND WILL CONT WITH POC TILL EOS
[2019-12-01] MEDS ORDERED: OMEPRAZOLE40 MG PO (03:14)
[2019-12-01 03:30] VITALS: BP 118/71
[2019-12-01 08:57] VITALS: BP 113/89
--- NOTE | 2019-12-01 10:34 | NUR ---
INITIAL ASSESSMENT: Pt evaluated for d/c planning needs. Reviewed chart and spoke with nurse and pt. Pt is alert and oriented. Pt lives in house with spouse and was independent with ADL's prior to admission to the hospital. Pt has cane at home. Pt had home health after knee and hip surgeries, but does not have walker. Pt plans on returning home on d/c from hospital. WIll remain available to assist as needed.
--- NOTE | 2019-12-01 16:29 | NUR ---
Assumed care of pt at 0700. Pt a&ox4. Cardiology consulted to clear pt for sx. Surgeon visited with pt and family and explained options. Platelets infused. 2 units of blood to be infused as well. SBA with walker and gait belt. Fall precautions in place.
[2019-12-01 18:00] VITALS: BP 114/68
[2019-12-01 19:10] VITALS: BP 143/56
--- NOTE | 2019-12-01 19:42 | NUR ---
Assumed care of pt at 0700. Pt a&ox4. Flu swab and MRSA swab negative. IVF completed. Denies pain. Pt ambulates with steady gait. Call light within reach. Report given to michi PARKS.
--- NOTE | 2019-12-02 03:26 | NUR ---
ASSESSED AT START OF SHIFT C/O ON INGESTION CALLED DR HERNANDEZ AND ORDERED RECEIVED FOR JUAN DANIEL. PT FEELING MUCH BETTER AFTWARDS. EVENING MEDS GIVING. CALL LIGHT IN REACH WILL CONT TO MONITOR TILL EOS
[2019-12-02 04:50] VITALS: BP 139/61
[2019-12-02 07:15] VITALS: BP 129/62
--- NOTE | 2019-12-02 12:57 | H ---
[facility] [place] [address] HISTORY AND PHYSICAL Name: VASILE DALE Room #: 434-P ADM IN M.R.#: [id number] Admission: 11/30/19 Attend Phys: Arnulfo Morley MD Discharge: Date of : 38 Report #: [id number] THIS REPORT FOR: //name// CC: Bradly Morley DATE OF SERVICE: 11/30/2019 CHIEF COMPLAINT: Cough and shortness of breath. HISTORY OF PRESENT ILLNESS: The patient is an 79-year-old white female who presented at my office with 24 hours of increasing shortness of breath and coughing and chest congestion. Her appetite was off as well. She did not sleep well the night before seeing me. Her cough is productive of brown milky phlegm. During exam at my office, she was noted to have an oxygen saturation on room air of 90% with a temperature of 101.4 degrees Fahrenheit. Her pulse was in the 80s and her blood pressure was 138/60, her respiratory rate was 22 per minute. I sent her to [facility] to be directly admitted for further evaluation and treatment. She has a working diagnosis of dementia, possibly influenza. PAST MEDICAL HISTORY: Very extensive and includes hypertension, type 2 diabetes, polymyalgia rheumatica, chronic steroid therapy, obstructive sleep apnea, right hip replacement, bilateral knee replacements, history of recurrent major depression. She has had cataract surgeries bilaterally. She has had a Jayna fundoplication and a subsequent revision as well as a gastric sleeve because of obesity. She has asthmatic COPD, mild peripheral neuropathy, hyperlipidemia, dry eyes. MEDICATION ALLERGIES: Include CODEINE, LANSOPRAZOLE, CIPRO, CALCIUM-CHANNEL CEDRICK, DILTIAZEM and VALSARTAN and PAPER TAPE and LATEX. MEDICATIONS: On admission include amlodipine, ProAir HFA metered dose inhaler, DuoNeb per nebulizer, Crestor 20 mg by mouth daily, sertraline 150 mg by mouth daily, bupropion 150 mg by mouth twice daily, gabapentin 300 mg by mouth nightly, omeprazole 20 mg by mouth b.i.d., vitamin D3 2000 units by mouth daily, Spiriva 1 capsule per inhaler daily, Tylenol No. 3 was tried for back pain and she did not have an allergic reaction to the CODEINE in it, but the pain relief was suboptimal. She has sublingual nitroglycerin for her recurrent chest pain issues, but these problems are not due to coronary artery disease. SOCIAL HISTORY: She is to [place] and has grown children and grandchildren. She has no history of alcohol or drug abuse or any significant vices. She is retired. FAMILY HISTORY: She has a brother who is a physician and he has bipolar [address] [address] HISTORY AND PHYSICAL Name: VASILE DALE Room #: 434-P [facility] IN M.R.#: [id number] Admission: 11/30/19 Attend Phys: Arnulfo Morley MD Discharge: Date of : 39 Report #: [id number] disorder. Her mother of myocardial infarction in her 90s, that was her first myocardial infarction. She also had some mild Alzheimer's dementia, fairly late onset. REVIEW OF SYSTEMS: The patient reports in the last 24 hours she has developed headache and dizziness, dry mouth. She denies any loss of hearing or change in her vision. Her neck is without pain. The patient denies any increase in chest pain lately. No abdominal pain. Her bowel and bladder function seems to be fairly normal and at baseline. She denies any problems, otherwise as regards to her lower extremities and her back. PHYSICAL EXAMINATION: VITAL SIGNS: In my office she had a temperature of 101.4 with respirations of 22 per minute, pulse and blood pressure listed above and weight was not obtained. GENERAL: The patient is a pleasant older white female who is downcast at the present time and appears slightly dyspneic. HEENT: Extraocular muscles are intact. Oropharynx is dry and pink without lesions or exudates. Sinuses, periorbital and suborbital are negative. Hearing is grossly normal bilaterally. NECK: Without adenopathy or thyromegaly or tenderness. There is slight tenting noted. LUNGS: Coarse with wheezing bilaterally and dullness in both bases. CARDIOVASCULAR: Reveals irregular rhythm without significant new murmur, gallop or rub. ABDOMEN: Soft. Bowel sounds are present, no visceromegaly or masses. EXTREMITIES: Without cyanosis or clubbing. She has trace peripheral edema in bilateral lower extremities, consistent with her baseline. Peripheral pulses easily palpated in all 4 distal extremities. MENTAL STATUS: The patient is alert. She is fully oriented, no hallucinations or delusions. Her affect is clearly downcast. Her short and long-term memory appears to be fairly normal at baseline. NEUROLOGIC: Fairly normal otherwise and this is baseline for her. She has some mild sensory deficits at the both feet in a stocking distribution. Objective lab and x-ray section shows the following results from the time of admission. She has an arterial blood gas with a pH of 7.440, pCO2 of 38.1 and a pO2 of 61.5 on room air. Lactic acid level was measured at 2.13 on the arterial blood gas, which is elevated. No other significant abnormalities on blood gas, CBC with differential shows a white count of 3.7 with a differential of 85.2, segmented neutrophils, 4.9 lymphs, 9.1 monos, 0.3 eosinophils, 0.5% basophils and the absolute neutrophil count was 5600, hemoglobin 10.7. Normal red cell indices with a slightly elevated RDW of 15.9 and the platelet count was 133,000. Basic metabolic panel showed sodium 141, potassium 3.7, chloride 103, bicarbonate of 32, BUN 11, creatinine 1.4, the anion gap is 6 and low. The BUN is 11, creatinine 1.4 with a GFR of 36, glucose 117, AST 15, total bilirubin 0.[address] [address] HISTORY AND PHYSICAL Name: VASILE DALE [facility] Room #: 434-P [facility] IN M.R.#: [id number] Admission: 11/30/19 Attend Phys: Arnulfo Morley MD Discharge: Date of : 39 Report #: [id number] and direct bilirubin is 0.1. The calcium is 8.4, alkaline phosphatase is 55, ALT is 17, AST is 15, total protein 6.6, albumin 3.2. The sedimentation rate was 28 and normal. Procalcitonin was less than 0.05 and normal. Blood cultures were obtained. Urinalysis was normal. Chest x-ray was performed. There were no acute infiltrates ____ atelectasis was otherwise seen bilaterally. Atherosclerotic changes in the aorta were noted. The patient had an influenza swab of her nares. This was negative for influenza A and B. Formal ____ studies including the nasal swab for respiratory viruses plus Streptococcal and legionella ____ studies are also pending at time of this dictation. ASSESSMENT AND PLAN: 1. Sepsis due to pneumonia versus influenza (hypoxemia, elevated lactic acid, mildly abnormal chest x-ray or evidence of such). I have started aggressive intravenous rehydration of the patient and started her on Tamiflu and IV antibiotics while awaiting further developments. She will continue aggressive pulmonary toilet as per home regimen. We will consider Pulmonary consult if her case becomes any more difficult to manage. 2. Dehydration as above. 3. Asthmatic chronic obstructive pulmonary disease. Nebulizer treatments ordered. I am considering the addition of further steroids. 4. Hypertension. We will monitor and treat with a goal of systolic blood pressure less than 140. 5. Gastroesophageal reflux disease with history of Jayna fundoplication, gastric sleeve. 6. Recurrent major depression. 7. Hyperlipidemia. 8. History of polymyalgia rheumatica, on chronic steroids. 9. Osteoarthritis with a history of bilateral total knee arthroplasty and total hip arthroplasty on the right. 10. Obstructive sleep apnea. Continue using CPAP. 11. Bilateral cataract surgeries. 12. Overweight. 13. Mitral valve regurgitation. 14. Choleretic diarrhea after a cholecystectomy. 15. Noncardiac chest pain with chronic anxiety. <ELECTRONICALLY SIGNED> By: Arnulfo Morley MD 12/02/19 1257 1150 1326 Arnulfo Morley MD /nt
--- NOTE | 2019-12-02 13:53 | NUR ---
PT CARE ASSUMED AT 0700. A&Ox4. PT UP AT [facility]. PT WOULD LIKE TO DISCHARGE TODAY. IV HAS BEEN REMOVED AND ORDERS ARE IN PLACE TO DISCHARGE. SCRIPTS SENT HOME WITH PATIENT.
[2019-12-02] MEDS ORDERED: SERTRALINE HCL50 MG PO (13:54)
[2019-12-02] MEDS ORDERED: BENZONATATE100 MG PO (13:54)
[2019-12-02] MEDS ORDERED: MUCINEX DM ER1 EAC1 PO (13:54)
[2019-12-02] MEDS ORDERED: TYLENOL EXTRA500 MG PO (13:54)
[2019-12-02] MEDS ORDERED: NEURONTIN 300300 M1 PO (13:54)
[2019-12-02] MEDS ORDERED: TRAZODONE HCL50 MG PO (13:54)
[2019-12-02] MEDS ORDERED: ASPIR 8181 MG PO (13:54)
[2019-12-02] MEDS ORDERED: WELLBUTRIN 100100 MG PO (13:54)
[2019-12-02] MEDS ORDERED: NORVASC5 MG PO (13:54)
[2019-12-02] MEDS ORDERED: IPRAT-ALBUT 0.5-3 ML INH (14:14)
[2019-12-02] MEDS ORDERED: ATORVASTATIN CA80 MG PO (14:14)
[2019-12-02] MEDS ORDERED: PULMICORT0.5 MG/21 INH (14:16)
[2019-12-02] MEDS ORDERED: ARTIFICIAL TEA1 EACH OPHTHALMIC (14:16)
[2019-12-02 14:17] VITALS: BP 129/62
[2019-12-02] MEDS ORDERED: PROTONIX 20 MG20 M1 PO (14:17)
[2019-12-03 22:06] LABS: ADENOVIRUS Negative (Negative); INFLUENZA A Negative (Negative); INFLUENZA B Negative (Negative); METAPNEUMOVIRUS Negative (Negative); PARAINFLUENZA 1 Negative (Negative); PARAINFLUENZA 2 Negative (Negative); PARAINFLUENZA 3 Negative (Negative); RHINOVIRUS Negative (Negative); RSV A Positive (Negative); RSV B Negative (Negative)
== END 2019-12-02 14:57 | disposition home or self-care (01) | DRG 871 ==
LOC: 4S 12:50
PROVIDERS: ADMIT Internal Medicine
DX: A41.9 Sepsis, unspecified organism (principal); J18.9 Pneumonia, unspecified organism; J11.00 Influenza due to unidentified influenza virus with unspecified type of pneumonia; J44.0 Chronic obstructive pulmonary disease with (acute) lower respiratory infection; I10 Essential (primary) hypertension; E11.9 Type 2 diabetes mellitus without complications; G47.33 Obstructive sleep apnea (adult) (pediatric); Z96.641 Presence of right artificial hip joint; Z96.653 Presence of artificial knee joint, bilateral; F32.9 Major depressive disorder, single episode, unspecified; G62.9 Polyneuropathy, unspecified; E78.5 Hyperlipidemia, unspecified; E86.0 Dehydration; M19.90 Unspecified osteoarthritis, unspecified site; K21.9 Gastro-esophageal reflux disease without esophagitis; I34.0 Nonrheumatic mitral (valve) insufficiency; E66.3 Overweight; Z68.33 Body mass index [BMI] 33.0-33.9, adult; Z98.42 Cataract extraction status, left eye; Z98.41 Cataract extraction status, right eye; Z79.899 Other long term (current) drug therapy
CPT/HCPCS: 10102

== ENCOUNTER → 2019-12-20 | Outpatient (CLI) | payer OTHER ==
[~2019-12-20] MED LIST changes: +ARTIFICIAL TEA1 EACH OPHTHALMIC; +ASPIR 8181 MG PO; +ATORVASTATIN CA80 MG PO; +BENZONATATE100 MG PO; +DESYREL150 MG PO; +IPRAT-ALBUT 0.5-3 ML INH; +KLOR-CON M2020 MEQ PO; +MUCINEX DM ER1 EAC1 PO; +NEURONTIN 300300 M1 PO; +NITROSTAT0.4 M1 SUBLING; +NORVASC5 MG PO; +OMEPRAZOLE40 MG PO; +PREDNISONE 5 MG5 M1 PO; +PROTONIX 20 MG20 M1 PO; +PULMICORT0.5 MG/21 INH; +SERTRALINE HCL50 MG PO; +TORSEMIDE20 MG PO; +TYLENOL EXTRA500 MG PO; +WELLBUTRIN 100100 MG PO; +XANAX 0.5 MG0.5 M1 PO
== END ==
LOC: SJCVC 12:58
DX: I21.19 ST elevation (STEMI) myocardial infarction involving other coronary artery of inferior wall (principal); R94.31 Abnormal electrocardiogram [ECG] [EKG]; I25.10 Atherosclerotic heart disease of native coronary artery without angina pectoris; E78.00 Pure hypercholesterolemia, unspecified; I10 Essential (primary) hypertension; K22.4 Dyskinesia of esophagus; R53.83 Other fatigue; R68.89 Other general symptoms and signs; I08.0 Rheumatic disorders of both mitral and aortic valves; J45.909 Unspecified asthma, uncomplicated; E78.5 Hyperlipidemia, unspecified; K21.9 Gastro-esophageal reflux disease without esophagitis; M81.0 Age-related osteoporosis without current pathological fracture; Z79.82 Long term (current) use of aspirin; Z79.899 Other long term (current) drug therapy

== ENCOUNTER 2020-01-04 06:50 | Inpatient (IN) | payer OTHER ==
[~2020-01-04] VITALS: Ht 154.9 cm; Wt 83.0 kg
[~2020-01-04 06:50] MED LIST changes: -DESYREL150 MG PO; -KLOR-CON M2020 MEQ PO; -NITROSTAT0.4 M1 SUBLING; -PREDNISONE 5 MG5 M1 PO; -TORSEMIDE20 MG PO; -XANAX 0.5 MG0.5 M1 PO
[2020-01-04] MEDS ORDERED: PREDNISONE 5 MG5 M1 PO (07:07)
[2020-01-04] MEDS ORDERED: TORSEMIDE20 MG PO (07:07)
[2020-01-04] MEDS ORDERED: DESYREL150 MG PO (07:11)
[2020-01-04] MEDS ORDERED: XANAX 0.5 MG0.5 M1 PO (07:13)
[2020-01-04 07:19] VITALS: BP 151/60
[2020-01-04] MEDS ORDERED: B12INJ IM (07:22)
[2020-01-04] MEDS ORDERED: NITROSTAT0.4 M1 SUBLING (07:25)
[2020-01-04 07:49] LABS: HEMATOCRIT 33.7 % (37.0-47.0); HEMOGLOBIN 10.6 gm/dL (12.0-15.0); MCH 28.2 pg (26.0-34.0); MCHC 31.5 g/dL (28.0-37.0); MCV 89.7 fL (80.0-100.0); RBC 3.76 mil/uL (4.20-5.00); RDW 17.1 % (10.5-14.5); WBC 8.4 thou/uL (4.0-11.0)
[2020-01-04 08:01] LABS: CALCIUM 8.4 mg/dL (8.5-10.1); CREATININE 1.2 mg/dL (0.6-1.0)
--- NOTE | 2020-01-04 08:21 | EKG ---
[facility] [place] [address] ELECTROCARDIOGRAM REPORT Name: VASILE DALE Room #: REG [facility]..#: [id number] Admission: 01/04/20 Attend Phys: Bradly Harman MD, Discharge: Date of : 39 Report #: [id number] THIS REPORT FOR: cc: Arnulfo Morley MD, Mark A. MD Lundgren, Craig H. MD [facility] THIS REPORT FOR: //name// [facility] Test Date: 2020-01-04 Test Time: 07:18:27 Pat Name: VASILE DALE Department: Room: Gender: It Analyst: Ute CACERES : 1940 Requested By: Bradly Harman Order Number: [id number] MD: Brock Lemon Measurements Intervals [place] Rate: 73 P: 58 ME: 146 QRS: 41 QRSD: 98 T: 30 QT: 415 QTc: 458 Interpretive Statements Sinus rhythm Normal tracing Compared to ECG 01/18/2019 07:19:53 No significant changes Electronically Signed On 01-04-2020 8:21:04 CERTIFIED NURSE OPERATING ROOM by Brock Lemon [email or web address] <ELECTRONICALLY SIGNED> By: Brock Lemon MD, [facility] 01/04/20 0821 7 7 Brock Lemon MD, [facility] /EPI
--- NOTE | 2020-01-04 12:36 | 2DMMODE ---
[facility] [place] [address] 2 D/M-MODE ECHOCARDIOGRAM Name: VASILE DALE Room #: REG [facility] Bisi.#: [id number] Admission: 01/04/20 Attend Phys: Bradly Harman MD, Discharge: Date of : 39 Report #: [id number] THIS REPORT FOR: cc: Arnulfo Morley MD, Mark A. MD Lundgren, Craig H. MD [facility] ~ APPROVED REPORT Study performed: 01/04/2020 10:55:01 EXAM: Comprehensive 2D, Doppler, and color-flow Echocardiogram Patient Location: Bedside Room #: 2 Status: routine BSA: 1.82 HR: 81 bpm BP: 145/48 mmHg Rhythm: NSR Other Information Study Quality: Good Indications COPD Mitral Valve Disease Diabetes Hypertension/HDD 2D Dimensions RVDd: 36.71 mm IVSd: 10.03 (7-11mm) LVOT Diam: 18.93 (18-24mm) LVDd: 54.37 mm PWd: 10.24 (7-11mm) Ascending Ao: 25.85 (22-36mm) LVDs: 37.90 (25-40mm) Aortic Root: 29.72 mm IVC: 15.00 mm Volumes Left Atrial Volume (Systole) Single Plane 4CH: 85.57 mL Single Plane 2CH: 56.89 mL LA ESV Index: 41.00 mL/m2 Aortic Valve AoV Peak Efraní.: 1.72 m/s AO Peak Gr.: 11.78 mmHg LVOT Max P.25 mmHg [facility] [address] [place] [address] 2 D/M-MODE ECHOCARDIOGRAM Name: DALEVASILE JET Room #: REG ERIN Renner#: [id number] Admission: 01/04/20 Attend Phys: Bradly Harman, Discharge: Date of : 39 Report #: [id number] LVOT Max V: 1.15 m/s FATEMEH Vmax: 1.88 cm2 AI Vmax: 4.04 m/s AI Meigs: 2.62 m/s2 AI PHT: 447.58 ms Mitral Valve E/A Ratio: 0.8 MV Decel. Time: 257.36 ms MV E Max Efraín.: 1.12 m/s MV A Efraín.: 1.37 m/s MV PHT: 74.63 ms IVRT: 87.66 ms Pulmonary Valve PV Peak Efraín.: 1.01 m/s PV Peak Gr.: 4.06 mmHg Pulmonary Vein P Vein S: 0.47 m/s P Vein A: 0.23 m/s P Vein D: 0.34 m/s P Vein A Dur.: 106.1 msec P Vein S/D Ratio: 1.38 Tricuspid Valve TR Peak Efraín.: 3.04 m/s TR Peak Gr.: 37.07 mmHg PA Pressure: 42.00 mmHg Left Ventricle The left ventricle is normal size. There is normal LV segmental wall motion. There is normal left ventricular wall thickness. The left ventricular systolic function is normal. The left ventricular ejection fraction is within the normal range. LVEF is 55-60%. Mild diastolic dysfunction is present (impaired relaxation pattern). Right Ventricle The right ventricle is normal size. The right ventricular systolic function is normal. Atria Left atrium is dilated. The right atrium size is normal. Aortic Valve The aortic valve is mildly sclerotic. Mild aortic regurgitation. There is no aortic valvular stenosis. [facility] [address] [place] [address] 2 D/M-MODE ECHOCARDIOGRAM Name: VASILE DALE [facility] [id number] Admission: 01/04/20 Attend Phys: Bradly Harman, Discharge: Date of : 39 Report #: [id number] Mitral Valve Heavy mitral annular calcification Moderate to severe mitral regurgitation No evidence of mitral valve stenosis. Tricuspid Valve The tricuspid valve is normal in structure. There is mild tricuspid regurgitation. Estimated PAP 45 mmHg. There is moderate pulmonary hypertension. Pulmonic Valve The pulmonary valve is normal in structure. There is no pulmonic valvular regurgitation. Great Vessels The aortic root is normal in size. IVC is normal in size and collapses >50% with inspiration. Pericardium There is no pericardial effusion. <Conclusion> The left ventricular systolic function is normal. There is normal LV segmental wall motion. LVEF is 55-60%. Mild diastolic dysfunction Left atrium is dilated. The aortic valve is mildly sclerotic. Mild aortic regurgitation, no stenosis. Heavy mitral annular calcification. Moderate to severe mitral regurgitation There is mild tricuspid regurgitation. Estimated pulmonary artery pressure of 45 mmHg. There is no pericardial effusion. <ELECTRONICALLY SIGNED> By: Brock Lemon MD, FACC 01/04/20 1235 1235 1235 Brock Lemon MD, FACC /INF
[2020-01-04 14:45] VITALS: BP 116/52
[2020-01-04 16:25] VITALS: BP 116/52
--- NOTE | 2020-01-04 17:42 | CATHLAB ---
[facility] [place] [address] INVASIVE PROCEDURE REPORT Name: VASILE DALE Room #: 205-P ADM Perez MSimona#: [id number] Admission: 01/04/20 Attend Phys: Bradly Harman MD, Discharge: Date of : 39 Report #: [id number] THIS REPORT FOR: cc: Arnulfo Morley MD, Mark A. MD Mancuso, Gerald M. MD [facility] ~ APPROVED REPORT Study performed: 01/04/2020 07:50:16 Patient Details Patient Status: Out-Patient Room #: The patient is a 79 year-old female Event Personnel Bradly Harman Senior Analysis Specialist, Jaja Ahumada RN RN, Farrukh Vela RTR Farida Padgett Ja'net RTR Monitor, Sandro Stark Monitor Procedures Performed Art Access - R femoral artery* Panda Access - R femoral vein Right and Left Heart Cath w/or w/o Coronarie [id number] [facility] Aortogram Abdominal Peripheral Angio 220931 Hemostasis w/ Mynx 14963 Initial Mod Sed Same Phys/QHP Gr5y 711920 09400 Mod Sed Same Phys/QHP Ea [id number] Indication Chest pain Procedure Narrative The patient was brought electively to the Cardiac Catheterization Laboratory and was prepped and draped in a sterile manner. The Right Groin^ was infiltrated with 1% Lidocaine subcutaneous anesthesia. A Right Heart Catheterization was performed with a 7 Fr. [place] catheter and pressure were recorded. Cardiac outputs were obtained by the Thermal Dilution method. A PINNACLE 6FR Sheath #[id number] sheath was inserted into the RFA^. Coronary angiography was performed using coronary diagnostic catheters. The right coronary system was accessed and visualized with a JR4 catheter. The left coronary system was accessed and visualized with a JL4 catheter. The left ventricle was accessed and visualized with a PIGTAIL catheter. An aortogram of the abdominal aorta was performed. Closure device was deployed with a 6 Fr MYNXGRIP 6/7F #[id number] on the right femoral artery. Hemostasis was obtained with manual pressure following sheath removal without any [address] [address] INVASIVE PROCEDURE REPORT Name: VASILE DALE [facility] Room #: [address] [place] [address] [place] ..#: [id number] Admission: 01/04/20 Attend Phys: Bradly Harman, Discharge: Date of : 39 Report #: [id number] complications. The patient tolerated the procedure well and there were no complications associated with the procedure. There was no hematoma. Intraoperative Conscious Sedation Sedation start time: 08:45 Case end Time: 09:17 Fentanyl 100 mcg Versed 1 mg Fluoro Time: 2.03 minutes Dose: DAP 2911.10 cGycm2 300 mGy Contrast Type and Amount: Visipaque 90 ml Hemodynamics The right atrial mean pressure is 15 mmHg. The right ventricular pressure is 53/13 mmHg. The pulmonary artery pressure is 52/30 mmHg with a mean of 38 mmHg. The mean pulmonary capillary wedge pressure is 34 mmHg. The aortic pressure is 178/76 mmHg with a mean of 118 mmHg. The left ventricular pressure is 170/11 mmHg with a mean of mmHg. The left ventricular end diastolic pressure is 25 mmHg. The cardiac output using thermo method is 4.80 L/min. The cardiac index using thermo method is 2.66 L/min/m2. Conclusion #1 mildly dilated left ventricle with hyperdynamic LV function and severe left atrial enlargement with severe mitral regurgitation #2 abdominal aortogram revealing mild aortic ectasia mild calcification. No aneurysm or stenosis. #3 left main long mildly calcified free of disease giving rise to LAD and circumflex #4 LAD extends around the apex with 3040% mid vessel lesions no high-grade occlusive disease #5 circumflex OM nondominant with mild disease #6 large dominant right coronary artery with mild irregularity #7 successful right heart catheterization with significant pulmonary pressure wedge pressure elevations. See above hemodynamics. Recommendations plan continue aggressive risk factor modification. Severe mitral regurgitation with significant pulmonary hypertension and apparent volume overload. We will admit to CCU for aggressive diuresis IV Lasix has been given in this catheterization lab. [facility] [address] [place] [address] INVASIVE PROCEDURE REPORT Name: VASILE DALE Room #: 205-P ADM IN M.R.#: [id number] Admission: 01/04/20 Attend Phys: Bradly Harman, Discharge: Date of : 38 Report #: [id number] Patient is pain-free and hemodynamically stable. Needs aggressive diuresis. Echo Doppler for further valve evaluation. <ELECTRONICALLY SIGNED> By: Bradly Harman MD, FACC 01/04/201740 40 40 Bradly Harman MD, FACC /INF
--- NOTE | 2020-01-04 18:31 | NUR ---
PT CARE ASSUMED APPROXIMATELY AT 1445. PT ASSESSMENTS CHARTED. VSS. PT IN NO DISTRESS. PT DENIES PAIN.
[2020-01-04 19:08] LABS: CREATININE 1.4 mg/dL (0.6-1.0); POTASSIUM 3.5 mmol/L (3.5-5.1)
[2020-01-04 20:30] VITALS: BP 119/43
[2020-01-05 00:45] VITALS: BP 116/59
--- NOTE | 2020-01-05 04:21 | NUR ---
PT [facility] CATH YESTERDAY. ALERT AND ORIENTED. RIGHT GROIN SITE CLEAR , DRY AND INTACT.VSS. DENIES , CHESP PAIN, NO NAUSEA, VOMITING OR DIARRHEA REPORTED. NO ANY EVENTS OVER NIGHT. SR, ON THE MONITOR. WILL CONTINUE WITH POC
[2020-01-05 05:58] LABS: HEMATOCRIT 33.6 % (37.0-47.0); HEMOGLOBIN 10.8 gm/dL (12.0-15.0); MCH 28.9 pg (26.0-34.0); MCHC 32.2 g/dL (28.0-37.0); MCV 89.7 fL (80.0-100.0); RBC 3.75 mil/uL (4.20-5.00); RDW 17.1 % (10.5-14.5); WBC 8.6 thou/uL (4.0-11.0)
[2020-01-05 05:59] VITALS: BP 127/62
[2020-01-05 06:05] LABS: CALCIUM 8.5 mg/dL (8.5-10.1); CREATININE 1.2 mg/dL (0.6-1.0); POTASSIUM 3.8 mmol/L (3.5-5.1)
[2020-01-05 07:50] VITALS: BP 135/61
[2020-01-05] MEDS ORDERED: TORSEMIDE20 MG PO (10:08)
[2020-01-05] MEDS ORDERED: KLOR-CON M2020 MEQ PO (10:08)
[2020-01-05 12:30] VITALS: BP 106/69
--- NOTE | 2020-01-05 13:49 | NUR ---
PT A+0X 4, ASSESSED, REVIEWED FLUID OVERLOAD AND EDUCATED PT AND KEEPING TRACK OF I&OS, PT VERBALIZED UNDERSTANDING, PT RESTING IN BED, REPORT GIVEN TO KASEY VILLANUEVA AT 131
[2020-01-05 16:45] VITALS: BP 138/59
[2020-01-05 20:15] VITALS: BP 123/62
[2020-01-06 04:23] LABS: CALCIUM 8.8 mg/dL (8.5-10.1); CREATININE 1.5 mg/dL (0.6-1.0); POTASSIUM 3.6 mmol/L (3.5-5.1)
[2020-01-06 04:55] VITALS: BP 124/47
--- NOTE | 2020-01-06 05:50 | NUR ---
ASSESSMENT CHARTED, MEDS GIVEN CHARTED. PATIENT RESTING IN BED DURING SHIFT. SINUS RHYTHM AT START OF SHIFT, SINUS ARRHYTHMIA AT 0200 CHECK. USED CPAP AT NIGHT. PATIENT REFUSED TO HAVE BED ALARM ACTIVATED. EVEN THOUGH FALL SCORE WAS 50. RIGHT GROIN SITE C/D/I. C/O HEADACHE BUT REQUESTED NOTHING. PLAN OF CARE IS TO GO HOME TODAY WITH NEW SCRIPTS. PATIENT ADVICED TO LIMIT FLUID INTAKE AND FOLLOW THE DASH DIET.
[2020-01-06 07:35] VITALS: BP 134/62
[2020-01-06 10:31] VITALS: BP 124/47
== END 2020-01-06 11:59 | disposition home or self-care (01) | DRG 286 ==
LOC: CATH 06:50 → 2N 14:47 → CATH 15:36 → 2N 01-05 09:26
PROVIDERS: ADMIT Internal Medicine Cardiovascular Disease
PROC: 4A023N8 Measurement of Cardiac Sampling and Pressure, Bilateral, Percutaneous Approach (ICD-10-PCS; principal; 2020-01-04)
PROC: B211YZZ Fluoroscopy of Multiple Coronary Arteries using Other Contrast (ICD-10-PCS; 2020-01-04)
PROC: B215YZZ Fluoroscopy of Left Heart using Other Contrast (ICD-10-PCS; 2020-01-04)
PROC: B410YZZ Fluoroscopy of Abdominal Aorta using Other Contrast (ICD-10-PCS; 2020-01-04)
DX: I25.10 Atherosclerotic heart disease of native coronary artery without angina pectoris (principal); I50.33 Acute on chronic diastolic (congestive) heart failure; I11.0 Hypertensive heart disease with heart failure; E78.00 Pure hypercholesterolemia, unspecified; Z96.653 Presence of artificial knee joint, bilateral; M79.7 Fibromyalgia; F31.9 Bipolar disorder, unspecified; F41.9 Anxiety disorder, unspecified; J45.909 Unspecified asthma, uncomplicated; G47.30 Sleep apnea, unspecified; Z96.643 Presence of artificial hip joint, bilateral; E78.5 Hyperlipidemia, unspecified; E87.6 Hypokalemia; I08.1 Rheumatic disorders of both mitral and tricuspid valves; Z88.2 Allergy status to sulfonamides; Z88.8 Allergy status to other drugs, medicaments and biological substances; Z88.1 Allergy status to other antibiotic agents; Z98.42 Cataract extraction status, left eye; Z98.41 Cataract extraction status, right eye; Z91.040 Latex allergy status; Z79.899 Other long term (current) drug therapy
CPT/HCPCS: 10081

== ENCOUNTER 2020-02-11 17:05 | Inpatient (IN) | payer OTHER ==
[~2020-02-11] VITALS: Ht 154.9 cm; Wt 84.3 kg
--- NOTE | ~2020-02-11 | O ---
[facility] [place] [address] OPERATIVE REPORT Name: VASILE DALE Room #: 236-P ADM IN M.R.#: [id number] Admission: 02/11/20 Attend Phys: Arnulfo Morley MD Discharge: Date of : 39 Report #: [id number] THIS REPORT FOR: cc: Arnulfo Morley MD, Mark A. MD ~ CC: Arnulfo Morley This is actually an art line placement, femoral artery. The patient is in the ICU under pressor support in extremely guarded condition. The right groin was prepped and draped in a sterile manner. I utilized a Cook needle and a 0.[address] a 5-[place] sheath in the right femoral artery under sterile conditions. The patient tolerated this well, was sutured in place and hooked up for IV arterial line monitoring. IMPRESSION: Successful arterial line placement in the right femoral artery. By: 1619 1706 /nt
--- NOTE | ~2020-02-11 | HC ---
[facility] [place] [address] CONSULTATION Name: VASILE DALE Room #: 236-P ADM IN M.R.#: [id number] Admission: 02/11/20 Attend Phys: Arnulfo Morley MD Discharge: Date of : 39 Report #: [id number] THIS REPORT FOR: cc: Arnulfo Morley MD, Mark A. MD ~ CC: Arnulfo Morley HISTORY OF PRESENT ILLNESS: An 80-year-old female patient of Dr. Morley seen in the ICU in extremely guarded condition here with hypotension and multiple pressors on board. Apparently had presented with some nausea, vomiting, abdominal pain for a couple of days with some progressive shortness of breath, was hypotensive initially in the Emergency Room and subsequently admitted and initiation of fluids and antibiotics. I had a recent right and left heart catheterization on her, which had moderate 3-vessel disease and severe mitral regurgitation with moderate pulmonary hypertension. We did increase her diuretic at home, but she had actually responded nicely to this regimen initially. I am not able to get much more except for the medical records. History mishra, she is intubated and not responsive, currently off of sedation. Sodium was 143, potassium is 3.3, creatinine 2.9, AST 91. H and H 12 and 39, white count 7.2. A significant left shift with 45% bands. CT showed extensive pulmonary infiltrates, fluid in the colon. There is possible enteritis. The chest x-ray was moderately extensive bilateral infiltrates and cardiomegaly. PAST MEDICAL HISTORY: Positive for coronary artery disease, fibromyalgias, hypertension, hypercholesterolemia, reflux, osteoporosis, polymyalgia and has been on the low dose prednisone. Positive MADINA titer. Cataract extraction, hernia repair, Jayna fundoplication, total knee. FAMILY HISTORY: Father and mother both had infarcts. MEDICATIONS: Home medications were albuterol, Demadex 20, Xanax, baby aspirin, amlodipine 2.5, Breo, Lomotil, Flonase, Neurontin, Imdur 30, Flagyl or metronidazole vaginal gel, Prilosec, prednisone, rosuvastatin, sertraline, Spiriva, trazodone, and low dose steroids. SOCIAL HISTORY: Believes she lives independently. Never smoker. Minimal alcohol 2 drinks a week. 4-6 cups of coffee a day. No exercise, but independent. PHYSICAL EXAMINATION: GENERAL: She is intubated. She was sedated, currently off. Systolic pressures 115. Blood pressure 90/47. That is with the art line. She is currently on vasopressin, Levophed and dopamine. There is minimal to no urine output. HEENT: Eyes reveal xanthelasmas. Pharynx is dry mucous membranes, intubated oral tube. NECK: Has preserved upstrokes, although diminished. [facility] [address] [place] [address] CONSULTATION Name: VASILE DALE JET Room #: 236-P [facility] IN M.R.#: [id number] Admission: 02/11/20 Attend Phys: Arnulfo Morley MD Discharge: Date of : 39 Report #: [id number] LUNGS: Clear anteriorly, but certainly course and markedly diminished bilaterally on the lateral half. ABDOMEN: Soft. There are bowel sounds. EXTREMITIES: Reveal trace of edema, nonpitting. NEUROLOGIC: She is not responsive. MUSCULOSKELETAL: Generalized arthritic changes. SKIN: Warm and dry. No open wounds or ulcers. ASSESSMENT: 1. Hypotension/sepsis/pneumonia bacterial versus possible COVID. 2. Coronary artery disease, stable from a recent catheterization. 3. Moderate pulmonary hypertension with severe mitral regurgitation by history, although has been tolerant of this and improved on the diuretic prior to this event. 4. Hypertension. 5. Hypercholesterolemia. 6. Polymyalgia rheumatica. 7. Degenerative joint disease. RECOMMENDATIONS AND PLAN: Art line was placed. Continue with pressors, IV Lasix has been given. It is difficult to know if there is a component of heart failure here with this x-ray. I would suspect more infectious than failure, but with her MR certainly possible. BMP and BNP ordered. Fluids at 100, Lasix 60 and then 100 given per Renal. We will wait for response. Continue pressor support. Prognosis appears to be poor here and certainly guarded. I have discussed with Dr. Morley and Dr. Rand of Infectious Disease. We will follow with you. Thank you for allowing me to participate in the care of this patient. By: 1614 [id number] /nt
[~2020-02-11 17:05] MED LIST changes: +DESYREL150 MG PO; +KLOR-CON M2020 MEQ PO; +NITROSTAT0.4 M1 SUBLING; +PREDNISONE 5 MG5 M1 PO; +TORSEMIDE20 MG PO; +XANAX 0.5 MG0.5 M1 PO
[2020-02-11 17:06] VITALS: BP 112/31
[2020-02-11 17:37] LABS: HEMATOCRIT 39.4 % (37.0-47.0); HEMOGLOBIN 12.5 gm/dL (12.0-15.0); MCH 28.7 pg (26.0-34.0); MCHC 31.8 g/dL (28.0-37.0); MCV 90.2 fL (80.0-100.0); PLATELET COUNT 236 thou/uL (150-400); RBC 4.37 mil/uL (4.20-5.00); RDW 16.7 % (10.5-14.5); WBC 7.2 thou/uL (4.0-11.0)
[2020-02-11 17:45] LABS: CALCIUM 8.2 mg/dL (8.5-10.1); CREATININE 2.9 mg/dL (0.6-1.0); POTASSIUM 3.3 mmol/L (3.5-5.1)
[2020-02-11 17:51] LABS: ALBUMIN 2.6 g/dL (3.4-5.0); TOTAL BILIRUBIN 0.6 mg/dL (<0.1-1.0); TOTAL PROTEIN 5.4 g/dL (6.4-8.2)
[2020-02-11 18:01] LABS: METAMYELOCYTES 1 %; NUCLEATED RBCS 2 /100WBC
[2020-02-11 18:02] LABS: ANISOCYTOSIS 1+; PLATELET ESTIMATE NORMAL
[2020-02-11] MEDS ORDERED: NORVASC 2.5 MG2.5 M1 PO (19:10)
[2020-02-11] MEDS ORDERED: SERTRALINE HCL100 MG PO (19:11)
[2020-02-11] MEDS ORDERED: ROSUVASTATIN CA20 MG PO (19:11)
[2020-02-11] MEDS ORDERED: BUPROPION HCL150 M1 PO (19:11)
[2020-02-11] MEDS ORDERED: FLONASE 0.05%50 MCG NARES (19:12)
[2020-02-11] MEDS ORDERED: TRAZODONE HCL100 MG PO (19:12)
[2020-02-11] MEDS ORDERED: ALPRAZOLAM 0.50.5 M1 PO (19:14)
[2020-02-11] MEDS ORDERED: NITROGLYCERIN0.4 MG SUBLING (19:14)
[2020-02-11] MEDS ORDERED: PREDNISONE 1 MG1 M1 PO (19:15)
[2020-02-11] MEDS ORDERED: PROAIR HFA8.5 GM INH (19:15)
[2020-02-11 19:51] LABS: URINE BILIRUBIN NEGATIVE (Negative); URINE BLOOD NEGATIVE (Negative); URINE CLARITY CLEAR; URINE COLOR YELLOW; URINE GLUCOSE-RANDOM* NEGATIVE (Negative); URINE KETONES TRACE (Negative); URINE LEUKOCYTES-REFLEX NEGATIVE (Negative); URINE NITRITE-REFLEX NEGATIVE (Negative); URINE PROTEIN (DIPSTICK) NEGATIVE (Negative); URINE UROBILINOGEN 0.2 E.U./dl (0.2-1.0)
[2020-02-11] MEDS ORDERED: FLOMAX0.4 MG PO (20:21)
[2020-02-11] MEDS ORDERED: ZOFRAN ODT4 MG PO (20:21)
[2020-02-11] MEDS ORDERED: NORCO 5-325 TA1 EAC1 PO (20:21)
[2020-02-11] MEDS ORDERED: CEFDINIR300 MG PO (20:21)
[2020-02-11 21:19] VITALS: BP 121/44
[2020-02-11 21:27] VITALS: BP 121/44
[2020-02-12] VITALS (63 sets, daily range): BP systolic 45–143; BP diastolic 11–60
[2020-02-12 00:30] LABS: BE(vivo) -5.8 mmol/L (-2 to +3); PCO2 40.8 mmHg (35.0-45.0); PO2 81.7 mmHg (80.0-100.0); sO2 95.1 % (92.0-98.0)
[2020-02-12 00:32] LABS: pH 7.309 (7.360-7.450)
[2020-02-12 01:07] LABS: CALCIUM 7.1 mg/dL (8.5-10.1); CREATININE 3.2 mg/dL (0.6-1.0)
[2020-02-12 05:03] LABS: CALCIUM 7.2 mg/dL (8.5-10.1); CREATININE 3.1 mg/dL (0.6-1.0)
[2020-02-12 05:11] LABS: POTASSIUM 4.6 mmol/L (3.5-5.1)
[2020-02-12 05:13] LABS: HEMATOCRIT 38.5 % (37.0-47.0); HEMOGLOBIN 12.1 gm/dL (12.0-15.0); MCH 28.7 pg (26.0-34.0); MCHC 31.5 g/dL (28.0-37.0); MCV 91.1 fL (80.0-100.0); RBC 4.23 mil/uL (4.20-5.00); RDW 17.2 % (10.5-14.5); WBC 8.4 thou/uL (4.0-11.0)
[2020-02-12 11:14] LABS: BE(vivo) -8.7 mmol/L (-2 to +3); HCO3 16.4 mmol/L (22.0-26.0); PCO2 32.7 mmHg (35.0-45.0); PO2 182.2 mmHg (80.0-100.0); pH 7.317 (7.360-7.450)
[2020-02-12 11:15] LABS: sO2 99.2 % (92.0-98.0)
--- NOTE | 2020-02-12 12:46 | EKG ---
[facility] [place] [address] ELECTROCARDIOGRAM REPORT Name: VASILE DALE Room #: 236- ADM IN M.R.#: [id number] Admission: 02/11/20 Attend Phys: Arnulfo Morley MD Discharge: Date of : 39 Report #: [id number] THIS REPORT FOR: cc: Arnulfo Morley MD, Mark A. MD Lundgren, Craig H. MD [facility] THIS REPORT FOR: //name// [facility] ED Test Date: 2020-02-11 Test Time: 17:24:04 Pat Name: VASILE DALE Department: Room: 236 Gender: F Rn Clinical Documentation Specialist: BRAN : 1940 Requested By: Arnulfo Morley Order Number: [id number] MD: Brock Lemon Measurements Intervals [place] Rate: 96 P: 49 MA: 134 QRS: 60 QRSD: 82 T: 14 QT: 372 QTc: 471 Interpretive Statements Sinus rhythm Normal tracing Compared to ECG 01/04/2020 07:18:27 No significant changes Electronically Signed On 02-12-2020 12:44:44 CDT by Brock Lemon [email or web address] <ELECTRONICALLY SIGNED> By: Brock Lemon MD, FACC 02/12/20 1244 1724 1724 Brock Lemon MD, [facility] /EPI
--- NOTE | 2020-02-12 14:59 | 2DMMODE ---
[facility] [place] [address] 2 D/M-MODE ECHOCARDIOGRAM Name: VASILE DALE [facility] Room #: 236-P ADM IN M.R.#: [id number] Admission: 02/11/20 Attend Phys: Arnulfo Morley MD Discharge: Date of : 39 Report #: [id number] THIS REPORT FOR: cc: Arnulfo Morley MD, Mark A. MD Lammoglia, Francisco J. MD ~ APPROVED REPORT Study performed: 02/12/2020 14:00:00 EXAM: Comprehensive 2D, Doppler, and color-flow Echocardiogram Patient Location: ICU Room #: [facility] Status: routine BSA: 1.83 HR: 108 bpm BP: 88/35 mmHg Rhythm: Tachycardia Other Information Study Quality: Adequate Indications Congestive Heart Failure COPD CAD Hypertension/HDD HLD 2D Dimensions RVDd: 30.46 mm IVSd: 12.84 (7-11mm) LVOT Diam: 17.60 (18-24mm) LVDd: 48.77 mm PWd: 14.21 (7-11mm) Ascending Ao: 29.53 (22-36mm) LVDs: 35.73 (25-40mm) Aortic Root: 25.85 mm IVC: 23.00 mm Volumes Left Atrial Volume (Systole) Single Plane 4CH: 84.05 mL Single Plane 2CH: 64.74 mL LA ESV Index: 45.00 mL/m2 Aortic Valve AoV Peak Efraín.: 1.43 m/s [facility] [address] [place] [address] 2 D/M-MODE ECHOCARDIOGRAM Name: VASILE DALE [facility] Room #: 236-P ADM IN M.R.#: [id number] Admission: 02/11/20 Attend Phys: Arnulfo Morley MD Discharge: Date of : 39 Report #: [id number] AO Peak Gr.: 8.24 mmHg LVOT Max P.50 mmHg LVOT Max V: 0.94 m/s FATEMEH Vmax: 1.59 cm2 AI Vmax: 3.39 m/s AI Magoffin: 3.99 m/s2 AI PHT: 246.75 ms Mitral Valve E/A Ratio: 1.3 MV Decel. Time: 139.14 ms MV E Max Efraín.: 1.23 m/s MV A Efraín.: 0.96 m/s MV PHT: 40.35 ms IVRT: 78.43 ms Pulmonary Valve PV Peak Efraín.: 0.56 m/s PV Peak Gr.: 1.26 mmHg Tricuspid Valve TR Peak Efraín.: 2.46 m/s RAP Estimate: 15.00 mmHg TR Peak Gr.: 24.25 mmHg PA Pressure: 39.00 mmHg Left Ventricle The left ventricle is normal size. There is mild global hypokinesis of the left ventricle. Mild concentric left ventricular hypertrophy. Left ventricular systolic function is mildly decreased. LVEF is 45%. Right Ventricle The right ventricle is normal size. Right ventricle is moderately hypokinetic. Atria Left atrium is moderately dilated. The right atrium size is normal. Aortic Valve Mild aortic valve sclerosis. Moderate to severe aortic regurgitation There is no aortic valvular stenosis. Mitral Valve Mild mitral annular calcification. Severe mitral regurgitation. No evidence of mitral valve stenosis. Tricuspid Valve [facility] [address] [place] [address] 2 D/M-MODE ECHOCARDIOGRAM Name: VASILE DALE Room #: 236-P ADM IN M.R.#: [id number] Admission: 02/11/20 Attend Phys: Arnulfo Morley MD Discharge: Date of : 39 Report #: [id number] The tricuspid valve is normal in structure. Trace to mild tricuspid regurgitation. PAP is estimated at 39 mmHg. Pulmonic Valve The pulmonary valve is normal in structure. Trace pulmonic regurgitation. Great Vessels The aortic root is normal in size. IVC is dilated and collapses <50% with inspiration. Pericardium There is no pericardial effusion. <Conclusion> The left ventricle is normal size. LVEF is 45%. There is mild global hypokinesis of the left ventricle. Left atrium is moderately dilated. Mild aortic valve sclerosis. Moderate to severe aortic regurgitation There is no aortic valvular stenosis. Mild mitral annular calcification. Severe mitral regurgitation. The tricuspid valve is normal in structure. Trace to mild tricuspid regurgitation. PAP is estimated at 39 mmHg. The pulmonary valve is normal in structure. Trace pulmonic regurgitation. There is no pericardial effusion. <ELECTRONICALLY SIGNED> By: Matthew Machado MD 02/12/20 1457 145 145 Matthew Machado MD /INF
[2020-02-12 17:01] LABS: BE(vivo) -16.1 mmol/L (-2 to +3); HCO3 11.2 mmol/L (22.0-26.0); PCO2 31.2 mmHg (35.0-45.0); PO2 186.5 mmHg (80.0-100.0)
[2020-02-12 17:02] LABS: pH 7.171 (7.360-7.450)
[2020-02-12 17:14] LABS: CALCIUM 6.8 mg/dL (8.5-10.1); CREATININE 3.4 mg/dL (0.6-1.0); POTASSIUM 4.7 mmol/L (3.5-5.1)
--- NOTE | 2020-02-12 17:55 | H ---
[facility] [place] [address] HISTORY AND PHYSICAL Name: VASILE FELICIANO Room #: 236-P ADM IN M.R.#: [id number] Admission: 02/11/20 Attend Phys: Arnulfo Morley MD Discharge: Date of : 39 Report #: [id number] THIS REPORT FOR: cc: Arnulfo Morley MD, Mark A. MD Angles, Mark A. MD ~ CC: Marc Montgomery MD DATE OF SERVICE: 02/12/2020 CHIEF COMPLAINT: Nausea and vomiting. HISTORY OF PRESENT ILLNESS: The patient is an 80-year-old white female who presented to [facility] Emergency Room with complaints of nausea, vomiting and diarrhea that began 2 days prior to this admission. Additional symptoms including abdominal pain per the ER note. Paramedics were called and in addition to these symptoms, she was found to be hypotensive at the scene, was started on intravenous fluids and brought to the Emergency Room. She was evaluated extensively there including influenza screen for A and B, which was negative and on CT scan of the abdomen and pelvis cuts through the lung bases also revealed bilateral ground glass infiltrates, prompting a further look at her lungs by chest x-ray, which revealed significant bilateral infiltrates. Her workup also included blood tests, which revealed an extremely left shifted white blood cell pattern with greater than 40% bands, lactic acidosis and creatinine that was approaching 3 on admission. Previously, she was not known to have significant kidney disease. PAST MEDICAL HISTORY: The patient was recently hospitalized for a cardiac workup because of congestive heart failure. Her coronary artery disease is minimal. She does have significant mitral and aortic valvular problems which were reviewed elsewhere in the record. PAST MEDICAL HISTORY: Also includes obstructive sleep apnea, polymyalgia rheumatica, laparoscopic Jayna fundoplication and subsequent failure and repeat surgery. Osteoarthritis in multiple sites with bilateral knee replacements, bilateral carpal tunnel surgeries, right hip replacement. She also has a history of cataract surgeries bilaterally. Nasal reconstruction very remotely and stapedectomy in the right ear. In addition to her gastroesophageal reflux disease, she has also had hypertension, hyperlipidemia, iron deficiency anemia, asthma, bipolar affective disorder, predominantly depression. MEDICATIONS: At home are as follows, isosorbide mononitrate 30 mg by mouth [address] [address] HISTORY AND PHYSICAL Name: VASILE FELICIANO JET Room #: 236-P [facility] IN M.R.#: [id number] Admission: 02/11/20 Attend Phys: Arnulfo Morley MD Discharge: Date of : 39 Report #: [id number] every morning, aspirin 81 mg by mouth every morning, gabapentin 300 mg by mouth every night, artificial tears as needed, torsemide 40 mg by mouth every morning, sertraline 100 mg by mouth every day, bupropion hydrochloride 150 mg by mouth every day extended release, Crestor 20 mg by mouth daily, fluticasone nasal spray 2 puffs each nostril daily, Xanax 0.5 mg by mouth daily p.r.n. anxiety, nitroglycerin 0.4 mg sublingual p.r.n. chest pain, albuterol sulfate HFA inhaler 2 puffs 6 times per day p.r.n. wheezing, prednisone 1 mg by mouth daily, colestipol 1 gram by mouth twice daily, Breo Ellipta 200/25 mcg one puff daily, Spiriva 1 capsule per inhaler daily, omeprazole 20 mg by mouth daily, trazodone 200 mg by mouth nightly, vitamin B12 1000 mcg IM every 2 weeks and vitamin D3 at 2000 units by mouth daily. ALLERGIES: She has the following allergies noted in her record: ANGIOTENSIN RECEPTOR CEDRICK, CIPRO, CODEINE, DILTIAZEM, LATEX AND TAPE, SULFA, VALSARTAN. FAMILY HISTORY: Her brother is bipolar, her mother had a history of coronary artery disease at the time of her at 95 years. Father's medical history is unknown. Her brother also has a history of lymphoma. SOCIAL HISTORY: The patient is to Yung Feliciano. I have spoken with him by phone today. He is currently asymptomatic for any pulmonary or GI conditions. He is sheltered in place at home with his daughter, Ashley who was also exposed. She is a nonsmoker and has no vices. REVIEW OF SYSTEMS: The patient is currently unable to give me any information as she is sedated and on a ventilator. PHYSICAL EXAMINATION: VITAL SIGNS: In the Emergency Room on arrival show a pulse of 100, respirations of 36 per minute with pulse oximetry of 92% on 15 liters per face mask and temperature was 37.0 degrees centigrade, blood pressure was 112/31. Reported weight in the Emergency Room was 185 pounds. GENERAL: The patient is an elderly white female who is sedated on a ventilator. HEENT: Extraocular muscles are not testable. Oropharynx, has orogastric tube, but appears benign externally. She also has oral endotracheal tube. NECK: Without adenopathy or thyromegaly or mass. LUNGS: Sound mostly clear with some scattered crackles noted in the right base. CARDIOVASCULAR: Reveals a regular rhythm, slightly tachycardic around 100-110 beats per minute during my exam, muffled systolic ejection murmur noted at the upper sternal border on the right as well as left third interspace. ABDOMEN: Soft. Bowel sounds are minimal. EXTREMITIES: Without cyanosis or clubbing or peripheral edema. Peripheral pulses are palpable in all 4 distal extremities, albeit weakly. (At time of my exam, systolic blood pressure was in the range of 110). She is currently receiving vasopressin and Levophed as well as supplemental fluids. Speaking with the nurse, I was informed she received 60 mg of IV Lasix this morning and [facility] [address] [address] HISTORY AND PHYSICAL Name: VASILE FELICIANO Room #: 236-P [facility] IN [facility].#: [id number] Admission: 02/11/20 Attend Phys: Arnulfo Morley MD Discharge: Date of : 39 Report #: [id number] had a liter of fluid and produced about an eighth of a liter of urine. She is getting re-bolused with fluid and receiving 100 mg of IV Lasix now. NEUROLOGIC: The patient is sedated on the vent and showed no spontaneous movements on my exam today. LABORATORY DATA: Her most recent Accu-Chek was 60. Most recent arterial blood gas at 05:25 this morning showed a pH of 7.317 with a pCO2 of 32.7 and a pO2 of 182.2 and this is on 85% FiO2 at current ventilator settings. Her lactate level on the arterial blood gas was 5.68 and this is after coming in just over 7 falling down into the 4 range and then rising back up again. Her basic metabolic panel at 4:00 this morning showed sodium 140, potassium 4.6, but the specimen was hemolyzed. Chloride was 104, CO2 is 21, BUN of 41, creatinine 3.1, anion gap was 15, glucose 122, calcium 7.2 and the estimated GFR was 14. CBC this morning without differential showed a white count of 8400, hemoglobin 12.1, hematocrit 38.5. Normal red blood cell indices with a slightly elevated RDW at 17.2 and a platelet count of 224,000. Her last accurate potassium was 4.0 just after midnight today. She does have sputum culture pending. The Gram stain showed moderate white blood cells, no squamous epithelial cells, rare gram-negative rods and few yeasts. EKG in the Emergency Room showed a sinus rhythm with a rate of 96 beats per minute and normal tracing. Influenza A and B antigen screens were negative. Urinalysis showed a clear yellow urine with specific gravity of 1.020, pH of 5.5. There were trace ketones and it was otherwise entirely negative. Culture not indicated. Procalcitonin in the ER was 140.4 drastically elevated and the admitting CBC had a white count of 7200 with 25% segs, 45% bands, 19% lymphs, 9% monocytes, and 1% eosinophils with 1% metamyelocytes and 2 nucleated red blood cells per 100 white blood cells. The absolute neutrophil count was 5000. Liver enzymes on admission were slightly abnormal with AST elevated at 91, ALT was normal at 35, alkaline phosphatase was normal at 49. Total bilirubin was normal at 0.6 and while the protein was 5.4, the albumin was 2.6. Estimated GFR was 16 on admission. Chest x-ray and CT scan are reviewed elsewhere. ASSESSMENT AND PLAN: 1. Sepsis with acute respiratory failure and bilateral pulmonary infiltrates, lactic acidosis, hypotension -- the patient was intubated rather soon after admission and aggressive resuscitative measures have been and continued to be pursued. Dr. Johann Montgomery, Pulmonary and Intensive Care Medicine has also seen the patient, made appropriate adjustments for pressors and intravenous antibiotic therapies. I will add a consultation with Dr. Marc Rand regarding the sepsis protocol and the workup for COVID-19. I think it would be reasonable in the circumstances to proceed with adding hydroxychloroquine and will place the patient on 600 mg by mouth daily per orogastric tube while awaiting test results. Prognosis is guarded. 2. Acute kidney insufficiency -- the therapeutic goal prior to this admission, with regards to the patient's valvular heart disease, was to maintain her as "dry" as possible in order to keep her out of congestive heart failure. I [facility] [address] [place] [address] HISTORY AND PHYSICAL Name: VASILE FELICIANO Room #: 236-P ADM IN M.R.#: [id number] Admission: 02/11/20 Attend Phys: Arnulfo Morley MD Discharge: Date of : 38 Report #: [id number] suspect generalized dehydration is somewhat complicating her sepsis picture and believe she is mostly just volume depleted. We will get a Nephrology consult as well and aggressively rehydrate her as able. 3. Hypertension. We will adjust medications as able, but for now, she needs pressors. 4. History of polymyalgia rheumatica, with prednisone on taper currently at 1 mg. She may need stress doses of steroids from time to time given the overwhelming nature of her infection. 5. Gastroesophageal reflux disease. We will continue on acid suppression and keep the head of the bed elevated. 6. Hyperlipidemia. We will continue treatment as able after she recovers. 7. History of bipolar affective disorder. We will continue treatment when she recovers from this physical illness. 8. Other medical problems as outlined above. <ELECTRONICALLY SIGNED> By: Arnulfo Morley MD 02/12/20 1755 1308 1357 Arnulfo Morley MD /nt
[2020-02-12 22:07] LABS: HEMOGLOBIN 12.2 g/dL (11.1-15.9)
--- NOTE | 2020-02-13 07:19 | HC ---
[facility] [place] [address] CONSULTATION Name: VASILE DALE Room #: 236-P [facility] IN M.R.#: [id number] Admission: 02/11/20 Attend Phys: Arnulfo Morley MD Discharge: 02/12/20 Date of : 38 Report #: [id number] THIS REPORT FOR: cc: Arnulfo Morley MD, Mark A. MD Geha, Daniel J. MD ~ CC: Arnulfo Morley DATE OF SERVICE: 02/12/2020 INFECTIOUS DISEASE CONSULTATION REASON FOR CONSULTATION: I was asked to evaluate concerning septic shock and concern over a SARS-CoV-2. HISTORY OF PRESENT ILLNESS: The patient is an 80-year-old who was admitted with a 2-day history of nausea, vomiting and diarrhea. Denied any chills or sweats. No documented fever with maximum temperature here of 99.1 degrees axillary. The patient was currently intubated on FiO2 of 85% on 2 pressors, sedated. Discussed the case with Dr. Morley and nursing staff at the bedside, had a [id number] amount of tracheal secretions. There is no report of hemoptysis or chest pain. She has a history of aortic insufficiency and mitral regurgitation along with mild ischemic cardiomyopathy changes. She was worked up last month by Dr. Harman, finding, no new cardiovascular issues. She has had no travel. Lives with her . We are currently suffering a coronavirus outbreak, pandemic. In the Emergency Room, she was given IV fluids, intubated and transferred to Intensive Care Unit. Her influenza antigen screening was negative. She has had CT scan of the lower chest and abdomen, which has revealed bilateral pulmonary infiltrates, some of which were interstitial in nature. She continues to have liquid stools. Her urine output has been about 15 mL per hour. CVP was 16. There have been no rashes or decubitus noted. She has had no adenopathy. There has been no bleeding disorder. No allergy issues. REVIEW OF SYSTEMS: A 14-point review of systems was negative other than what has been described above. PAST MEDICAL HISTORY: Congestive heart failure, coronary artery disease, mitral and aortic insufficiency, obstructive sleep apnea, COPD, polymyalgia rheumatica, on prednisone; laparoscopic Jayna fundoplication, osteoarthritis, bilateral total knee arthroplasties, bilateral total hip replacement, bilateral carpal tunnel surgeries, cataract surgery, nasal reconstruction, right ear surgery with stapedectomy, hypertension, hyperlipidemia, iron deficiency anemia, bipolar affective disorder. ALLERGIES: ANGIOTENSIN RECEPTOR CEDRICK, CIPROFLOXACIN, SULFA, CODEINE, [facility] [address] [place] [address] CONSULTATION Name: VASILE DALE Room #: 236-P [facility] IN ..#: [id number] Admission: 02/11/20 Attend Phys: Arnulfo Morley MD Discharge: 02/12/20 Date of : 38 Report #: [id number] DILTIAZEM, LATEX, VALSARTAN. MEDICATIONS: As noted on her JAN, now on vancomycin, azithromycin, Zosyn and hydroxychloroquine. Hydroxychloroquine was started today. FAMILY HISTORY: Bipolar disorder. SOCIAL HISTORY: Nonsmoker, no significant alcohol intake. PHYSICAL EXAMINATION: VITAL SIGNS: Currently afebrile, blood pressure has just dropped and is now receiving fluid bolus. She is tachycardic, on Levophed and vasopressin. SKIN: Without rash. No palpable adenopathy. HEENT: Eyes, without scleral icterus. Mouth without mucositis. Orally intubated. NECK: Supple. LUNGS: Crackles in the bases, predominantly on the right. HEART: Tachycardic with ejection murmur at left sternal border as well as at the apex. ABDOMEN: Soft with no guarding or hepatosplenomegaly. EXTREMITIES: Without clubbing, cyanosis or edema. Pulses are palpable throughout. PSYCHIATRIC: Mood unable to assess. She is sedated. LABORATORY STUDIES: Reviewed. MICROBIOLOGY: Reviewed. Chest x-ray reviewed. CT scan of the abdomen reviewed. IMPRESSION: 1. An 80-year-old immunosuppressed with polymyalgia rheumatica, on low dose prednisone presents with septic shock, bilateral pulmonary infiltrates, acute kidney injury, gastroenteritis, elevated procalcitonin and marked bandemia without significant leukocytosis. 2. Bilateral pulmonary infiltrates, aspiration versus community-acquired with recent hospitalization for pneumonia versus viral etiology. 3. Gastroenteritis. 4. Chronic obstructive pulmonary disease and obstructive sleep apnea. 5. Polymyalgia rheumatica, on immunosuppression. 6. Hypertension with aortic and mitral insufficiency. [place] here is very poor given her multiorgan system disease, noting encephalopathy, shock, respiratory failure, acute kidney injury. [facility] [address] [place] [address] CONSULTATION Name: VASILE DALE Room #: 236-P [facility] IN M.R.#: [id number] Admission: 02/11/20 Attend Phys: Arnulfo Morley MD Discharge: 02/12/20 Date of : 38 Report #: [id number] RECOMMENDATIONS: Full ICU support for maximal treatment given her significant risk for mortality and comorbidities. She will undergo viral screening for pathogens in addition to bacterial cultures. She will be treated for both bacterial and viral etiologies. Agree with plan for Pulmonary Intensive Care consultation and Nephrology consultation. We will await further testing, revised adjustment with her antimicrobial therapy. <ELECTRONICALLY SIGNED> By: Marc Rand MD 02/13/20 [id number] Marc Rand MD /nt
== END 2020-02-12 22:22 | DRG 871 ==
LOC: ER 17:05 → ICU 20:09 → EROBS 20:09 → ICU 23:45
PROVIDERS: Emergency Medicine; Internal Medicine Pulmonary Disease; ADMIT Internal Medicine
DX: A41.9 Sepsis, unspecified organism (principal); J96.01 Acute respiratory failure with hypoxia; R65.21 Severe sepsis with septic shock; N17.9 Acute kidney failure, unspecified; J44.0 Chronic obstructive pulmonary disease with (acute) lower respiratory infection; Z96.653 Presence of artificial knee joint, bilateral; F32.9 Major depressive disorder, single episode, unspecified; F41.9 Anxiety disorder, unspecified; E78.00 Pure hypercholesterolemia, unspecified; K21.9 Gastro-esophageal reflux disease without esophagitis; I25.10 Atherosclerotic heart disease of native coronary artery without angina pectoris; Z96.643 Presence of artificial hip joint, bilateral; I50.9 Heart failure, unspecified; G47.33 Obstructive sleep apnea (adult) (pediatric); E78.5 Hyperlipidemia, unspecified; M35.3 Polymyalgia rheumatica; I95.9 Hypotension, unspecified; I27.20 Pulmonary hypertension, unspecified; K52.9 Noninfective gastroenteritis and colitis, unspecified; M19.90 Unspecified osteoarthritis, unspecified site; I34.0 Nonrheumatic mitral (valve) insufficiency; Z79.52 Long term (current) use of systemic steroids; Z98.42 Cataract extraction status, left eye; Z98.41 Cataract extraction status, right eye; Z88.2 Allergy status to sulfonamides; Z88.8 Allergy status to other drugs, medicaments and biological substances; Z88.6 Allergy status to analgesic agent; Z88.1 Allergy status to other antibiotic agents; Z91.040 Latex allergy status; Z81.8 Family history of other mental and behavioral disorders
CPT/HCPCS: 10078; 27000; 85026